=== PATIENT | male | born 1955 | race Caucasian/White ===

== ENCOUNTER 2016-12-08 19:46 | Observation (INO) | payer OTHER ==
[~2016-12-08] VITALS: Ht 175.3 cm; Wt 110.2 kg
[~2016-12-08 19:46] MED LIST: ACET-1175 PO; ASPI-435 PO; BRIM1GEL TD; CHOL100010 PO; DYZ PO; IBUP-1427 PO; LEVO75TA PO; METO50TA16 PO; OXYC1TAB3 PO; SIMV20TA2 PO
[2016-12-08] MEDS ORDERED: SODIUM CHLORIDE 0.9% 1000ML 1,000 ML IV STA (19:59)
[2016-12-08] MEDS ORDERED: ADENOSINE IV SOLN 3 MG/ML 2 ML VIAL ONE (19:59)
[2016-12-08] MEDS ORDERED: ADENOSINE IV SOLN 3 MG/ML 2 ML VIAL IV STA (20:01)
[2016-12-08 20:20] LABS: BASO % 0.2 %; BASO ABS # 0.02 K/uL (0-0.2); COMPLETE YES; EOS % 1.6 %; HEMATOCRIT 45.6 % (42-52); IG% 0.2 %; LYMPH % 29.1 %; LYMPH ABS # 2.87 K/uL (1.2-3.4); MEAN CELL VOLUME 88.7 fL (80-100); MEAN CORPUSCULAR HEMOGLOBIN 29.8 pg (25-34); MEAN CORPUSCULAR HGB CONC 33.6 g/dl (32-36); MEAN PLATELET VOLUME 12.8 fL (7.4-10.4); MONO % 4.9 %; PLATELET COUNT 152 K/uL (130-400); RED BLOOD COUNT 5.14 M/uL (4.7-6.1); WHITE BLOOD COUNT 9.87 K/uL (4.8-10.8)
[2016-12-08] MEDS ORDERED: TRIATAB3 PO (20:22)
[2016-12-08] MEDS ORDERED: CHOL1TAB53 PO (20:22)
--- NOTE | 2016-12-08 20:23 | DIAGNOSTIC IMAGING REPORT ---
CHEST ONE VIEW PORTABLE CLINICAL HISTORY: EVALUATE RESPIRATORY DISTRESS. DYSPNEA dyspnea COMPARISON STUDY: 05/26/2014 FINDINGS: Moderate cardiomegaly. Small parenchymal infiltrate left base. Calcified granuloma right upper lung. IMPRESSION: Moderate cardiac megaly. Small parenchymal infiltrate left base. Electronically signed by: Hudson Mejia M.D. 12/08/2016 8:22 PM Dictated Date/Time: 12/08/2016 8:22 PM
[2016-12-08 20:30] LABS: PARTIAL THROMBOPLASTIN RATIO 1.2; PROTHROMBIN TIME (PATIENT) 10.8 SECONDS (9.0-12.0)
[2016-12-08 20:41] LABS: ALT/SGPT 55 U/L (12-78); BLOOD UREA NITROGEN 16 mg/dl (7-18); BUN/CREATININE RATIO 12.2 (10-20); CALCIUM 8.9 mg/dl (8.5-10.1); CARBON DIOXIDE 33 mmol/L (21-32); CHLORIDE 101 mmol/L (98-107); GLUCOSE 176 mg/dl (70-99); MAGNESIUM 1.9 mg/dl (1.8-2.4); POTASSIUM 3.7 mmol/L (3.5-5.1); SODIUM 141 mmol/L (136-145)
[2016-12-08 20:49] LABS: ISTAT CREATININE 1.1 mg/dl (0.6-1.3); ISTAT IONIZED CALCIUM 1.12 mmol/l (1.12-1.32)
[2016-12-08 20:50] LABS: URINE APPEARANCE CLEAR (CLEAR); URINE BILIRUBIN NEG (NEG); URINE COLOR YELLOW; URINE NITRITE NEG (NEG); URINE SPECIFIC GRAVITY 1.006 (1.000-1.030); UROBILINOGEN NEG (NEG)
[2016-12-08 20:52] LABS: MANUAL MICROSCOPIC REQUIRED? NO; REVIEW REQ? NO
[2016-12-08 20:52] LABS: ALB/GLOB RATIO 0.8 (0.9-2); ALKALINE PHOSPHATASE 102 U/L (45-117); AST/SGOT 37 U/L (15-37)
--- NOTE | 2016-12-08 21:09 | DIAGNOSTIC IMAGING REPORT ---
Study: CT angiography of the chest INDICATION: Pain FINDINGS: Normal caliber thoracic aorta. No evidence for aneurysm or dissection. Pulmonary vasculature enhances appropriately. Lungs are considered clear. Calcified granuloma superior segment right upper lobe. IMPRESSION: Negative study of the thoracic aorta. Lungs are clear. Electronically signed by: Hudson Mejia M.D. 12/08/2016 9:08 PM Dictated Date/Time: 12/08/2016 9:06 PM
[2016-12-08] MEDS ORDERED: OPTIRAY 320 IV PRN (21:15)
[2016-12-08] MEDS ORDERED: ASPIRIN 324 MG CHEW PO STA (21:23)
[2016-12-08] MEDS ORDERED: METOPROLOL TARTRATE 50 MG TAB PO STA ×2 (21:28→22:48)
--- NOTE | 2016-12-08 21:51 | EMERGENCY ROOM VISIT NOTE ---
History Report prepared by Luis: Frida Noel Under the Supervision of: Dr. Mike Olmstead D.O. First contact with patient: 19:55 Chief Complaint: CHEST PAIN Stated Complaint: CHEST PAINS History of Present Illness The patient is a 61 year old male who presents to the Emergency Room with complaints of persistent tightness in his chest starting 1830 today. He denies any SOB or abdominal pain. He denies any recent sickness. He had SVT 6-7 years ago. He had a stress test at the time which was fine. He has been eating and drinking normally. He does not have any history of heart failure. There might be something wrong with one of his heart valves, but the family cannot recall the exact problem. He has been taking all his medications. Source of History: patient Onset: 1829 Position: chest Quality: other (tightness) Timing: other (persistent) Associated Symptoms: No SOB, No abdominal pain Review of Systems See HPI for pertinent positives & negatives. A total of 10 systems reviewed and were otherwise negative. Past Medical & Surgical Medical Problems: (1) Cardiac Dysrhythmias Nec (2) Cervicalgia (3) History of supraventricular tachycardia (4) Hyperlipidemia Nec/Nos (5) Hypertension Nos (6) Hypothyroidism Nos (7) Hypothyroidism Nos (8) Osteoarthros Nos-Pelvis Surgical Problems: (1) Status post left hip replacement Family History None provided Social History Smoking Status: Current Some Day Smoker Drug Use: none Marital Status: Housing Status: lives with significant other Occupation Status: disabled Current/Historical Medications Scheduled Acetaminophen (Tylenol), 650 MG PO PRN Aspirin (Aspirin 81), 81 MG PO DAILY Cholecalciferol (D 1000), 1,000 INTER.UNIT PO DAILY Ibuprofen Tab (Motrin), 600 MG PO TID Levothyroxine Sodium (Synthroid), 75 MCG PO DAILY Metoprolol Tartrate (Lopressor) (Lopressor), 50 MG PO BID Simvastatin (Zocor), 20 MG PO QPM Triamterene/Hctz (Triamterene/Hctz 37.5-25MG), 1 TAB PO DAILY Scheduled PRN Oxycodone Immediate Rel Tab (Roxicodone Ir), 1-2 TAB PO Q4H PRN for Severe Pain Allergies Coded Allergies: Penicillins (Verified Allergy, Unknown, HIVES, SOB, G I UPSET, 12/08/16) Physical Exam Vital Signs Date Time Temp Pulse Resp B/P Pulse Ox O2 Delivery O2 Flow Rate FiO2 12/08/16 21:31 95 13 99 12/08/16 21:30 162/104 12/08/16 21:20 147/75 12/08/16 21:16 123 96 12/08/16 21:15 183/137 12/08/16 21:05 158/85 12/08/16 20:46 98 26 97 12/08/16 20:45 137/83 12/08/16 20:31 98 12 98 12/08/16 20:30 144/101 12/08/16 20:27 110 18 171/106 98 Room Air 12/08/16 20:27 171/106 12/08/16 20:17 97 Room Air 12/08/16 20:16 101 15 96 12/08/16 20:15 100 12/08/16 20:13 100 19 137/79 96 Room Air 12/08/16 20:11 96 Room Air 12/08/16 20:11 97 Room Air 12/08/16 20:09 137/79 12/08/16 19:51 36.8 181 20 137/77 92 Room Air Physical Exam GENERAL: Patient is awake, alert, and anxious appearing. EYES: The conjunctivae are clear. The pupils are round and reactive. EARS, NOSE, MOUTH AND THROAT: The nose is without any evidence of any deformity. Mucous membranes are moist tongue is midline NECK: The neck is nontender and supple. RESPIRATORY: Normal respiratory effort is noted there is no evidence of wheezing rhonchi or rales CARDIOVASCULAR: Tachycardic rate and regular rhythm. No definite murmur noted to auscultation. GASTROINTESTINAL: The abdomen is soft. Bowel sounds are present in all quadrants. Abdomen is nontender MUSCULOSKELETAL/EXTREMITIES: There is no evidence of gross deformity full range of motion is noted in the hips and shoulders SKIN: There is no obvious evidence of any rash. There are no petechiae, pallor or cyanosis noted. Trace pedal edema bilaterally. NEUROLOGIC: Patient is awake alert and oriented x3. Medical Decision & Procedures ER Provider Diagnostic Interpretation: X-ray results as stated below per interpretation by me and the radiologist. Radiology results as stated below per my review and radiologist interpretation: CHEST ONE VIEW PORTABLE CLINICAL HISTORY: EVALUATE RESPIRATORY DISTRESS. DYSPNEA dyspnea COMPARISON STUDY: 05/26/2014 FINDINGS: Moderate cardiomegaly. Small parenchymal infiltrate left base. Calcified granuloma right upper lung. IMPRESSION: Moderate cardiac megaly. Small parenchymal infiltrate left base. Electronically signed by: Hudson Mejia M.D. 12/08/2016 8:22 PM Dictated Date/Time: 12/08/2016 8:22 PM Study: CT angiography of the chest INDICATION: Pain FINDINGS: Normal caliber thoracic aorta. No evidence for aneurysm or dissection. Pulmonary vasculature enhances appropriately. Lungs are considered clear. Calcified granuloma superior segment right upper lobe. IMPRESSION: Negative study of the thoracic aorta. Lungs are clear. Electronically signed by: Hudson Mejia M.D. 12/08/2016 9:08 PM Dictated Date/Time: 12/08/2016 9:06 PM Laboratory Results 12/08/16 20:00 Red Blood Count 5.14, Mean Corpuscular Volume 88.7, Mean Corpuscular Hemoglobin 29.8, Mean Corpuscular Hemoglobin Concent 33.6, Mean Platelet Volume 12.8, Neutrophils (%) (Auto) 64.0, Lymphocytes (%) (Auto) 29.1, Monocytes (%) (Auto) 4.9, Eosinophils (%) (Auto) 1.6, Basophils (%) (Auto) 0.2, Neutrophils # (Auto) 6.32, Lymphocytes # (Auto) 2.87, Monocytes # (Auto) 0.48, Eosinophils # (Auto) 0.16, Basophils # (Auto) 0.02 12/08/16 20:00 Test 12/08/16 20:00 12/08/16 20:25 12/08/16 20:31 White Blood Count 9.87 K/uL (4.8-10.8) Red Blood Count 5.14 M/uL (4.7-6.1) Hemoglobin 15.3 g/dL (14.0-18.0) Hematocrit 45.6 % (42-52) Mean Corpuscular Volume 88.7 fL (80-100) Mean Corpuscular Hemoglobin 29.8 pg (25-34) Mean Corpuscular Hemoglobin Concent 33.6 g/dl (32-36) Platelet Count 152 K/uL (130-400) Mean Platelet Volume 12.8 fL (7.4-10.4) Neutrophils (%) (Auto) 64.0 % Lymphocytes (%) (Auto) 29.1 % Monocytes (%) (Auto) 4.9 % Eosinophils (%) (Auto) 1.6 % Basophils (%) (Auto) 0.2 % Neutrophils # (Auto) 6.32 K/uL (1.4-6.5) Lymphocytes # (Auto) 2.87 K/uL (1.2-3.4) Monocytes # (Auto) 0.48 K/uL (0.11-0.59) Eosinophils # (Auto) 0.16 K/uL (0-0.5) Basophils # (Auto) 0.02 K/uL (0-0.2) RDW Standard Deviation 45.6 fL (36.4-46.3) RDW Coefficient of Variation 14.0 % (11.5-14.5) Immature Granulocyte % (Auto) 0.2 % Immature Granulocyte # (Auto) 0.02 K/uL (0.00-0.02) Prothrombin Time 10.8 SECONDS (9.0-12.0) Prothromb Time International Ratio 1.0 (0.9-1.1) Activated Partial Thromboplast Time 29.9 SECONDS (21.0-31.0) Partial Thromboplastin Ratio 1.2 Est Creatinine Clear Calc Drug Dose 73.4 ml/min Estimated GFR () 68.7 Estimated GFR (Non- 59.3 BUN/Creatinine Ratio 12.2 (10-20) Calcium Level 8.9 mg/dl (8.5-10.1) Magnesium Level 1.9 mg/dl (1.8-2.4) Total Bilirubin 0.5 mg/dl (0.2-1) Aspartate Amino Transf (AST/SGOT) 37 U/L (15-37) Alanine Aminotransferase (ALT/SGPT) 55 U/L (12-78) Alkaline Phosphatase 102 U/L (45-117) Troponin I < 0.015 ng/ml (0-0.045) Total Protein 8.6 gm/dl (6.4-8.2) Albumin 3.8 gm/dl (3.4-5.0) Globulin 4.8 gm/dl (2.5-4.0) Albumin/Globulin Ratio 0.8 (0.9-2) Thyroid Stimulating Hormone (TSH) 2.330 uIu/ml (0.300-4.500) Urine Color YELLOW Urine Appearance CLEAR (CLEAR) Urine pH 7.0 (4.5-7.5) Urine Specific [place] 1.006 (1.000-1.030) Urine Protein NEG (NEG) Urine Glucose (UA) NEG (NEG) Urine Ketones NEG (NEG) Urine Occult Blood NEG (NEG) Urine Nitrite NEG (NEG) Urine Bilirubin NEG (NEG) Urine Urobilinogen NEG (NEG) Urine Leukocyte Esterase NEG (NEG) Bedside Hemoglobin 16.0 g/dl (14.0-18.0) Bedside Hematocrit 47 % (42-52) Bedside Sodium 143 mEq/L (135-144) Bedside Potassium 3.4 mEq/L (3.3-5.0) Bedside Chloride 98 mEq/L (101-112) Bedside Total CO2 32 mEq/l (24-31) Anion Gap 18.0 mmol/L (16-25) Bedside Blood Urea Nitrogen 17 mg/dl (7-18) Bedside Creatinine 1.1 mg/dl (0.6-1.3) Bedside Glucose (other) 175 mg/dl (70-99) Bedside Ionized Calcium (Maria G) 1.12 mmol/l (1.12-1.32) Laboratory results per my review. Medications Administered Medications (Trade) Dose Ordered Sig/Deepak Route Start Time Stop Time Status Last Admin Dose Admin Sodium Chloride (Nss 1000ml) 1,000 ml @ 999 mls/hr Q1H1M STAT IV 12/08/16 19:59 12/08/16 20:59 DC 12/08/16 20:14 999 MLS/HR Adenosine (Adenosine IV) 6 mg NOW STAT IV 12/08/16 20:01 12/08/16 20:02 DC 12/08/16 20:01 6 MG Adenosine (Adenosine IV) 18 mg STK-MED ONCE .ROUTE 12/08/16 19:59 12/08/16 20:03 DC 12/08/16 20:14 12 MG Aspirin (Aspirin Chew) 324 mg NOW STAT PO 12/08/16 21:23 12/08/16 21:24 DC 12/08/16 21:43 324 MG Metoprolol Tartrate (Lopressor Tab) 50 mg NOW STAT PO 12/08/16 21:28 12/08/16 21:29 DC 12/08/16 21:43 50 MG ECG Indication: chest pain Rate (beats per minute): 162 Rhythm: other (narrow complex tachycardia) Findings: Q waves (Inferior), other (poor R-wave progression noted, no definite ectopy noted,) Comparison ECG Date: Change: changes new. Repeat EKG: Sinus tachycardia, rate 106, 1st degree AV block, poor R-wave progression, lateral ST depressions with T-wave inversion. New compared to . Repeat EKG: NSR 95, persistence of inferior ST and T-wave abnormalities. No change from the previous EKG. ED Course 1956: The patient was evaluated in room A4B. A complete history and physical examination were performed. 1958: Adenosine 18 mg IV, NSS 1000 ml @ 999 mls/hr IV. 2000: Adenosine 6 mg IV. 2122: Aspirin 324 mg PO. 2127: Lopressor Tab 50 mg PO. 2134: I discussed the patient's case with Dr. Ruffin, [facility] - hospitalist. The patient will be evaluated for further management. 2139: Upon reevaluation, the patient is resting comfortably. I discussed results and treatment plan with him. He verbalizes agreement and understanding. The patient will be evaluated for further management and care. Medical Decision Prior records/ancillary studies reviewed. Triage Nursing notes reviewed. Additional history obtained from family. The patient's history was concerning for palpitations. Differential diagnosis: Etiologies such as premature contractions, electrolyte abnormality, cardiac dysrhythmia, thyroid dysfunction, pulmonary embolism, infection, gastrointestinal, as well as others were entertained. The patient is a 61-year-old male who presented to the emergency department for an evaluation of chest pain and palpitations. The patient has a history of SVT. He states that he was treated with Adenocard previously for similar complaints. The patient was given a fluid bolus as well as Valsalva maneuvers to try to break the tachycardia. He did not have resolution of symptoms and was then treated with IV Adenocard in the emergency department. On subsequent reevaluation he was in a sinus tachycardia. His symptoms significantly improved. The patient was found have an EKG which did show change compared to previous EKG. I was very concerned this could represent an underlying cardiac ischemic episode however the patient did have a cardiac catheterization at our facility which did not show any occlusive coronary artery disease. I discussed the patient's laboratory and radiographic studies with him and his family members. The patient was treated with aspirin and beta blockade in the emergency department. I discussed his case with the on-call [facility]ist. They've agreed to evaluate the patient in the emergency department for further management and disposition. Consults Time Called: 2129 Consulting Physician: Dr. Ruffin [facility] Returned Call: [phone] I discussed the patient's case with him. The patient will be evaluated for further management. Impression Primary Impression: Chest pain Additional Impressions: SVT (supraventricular tachycardia) Abnormal EKG Critical Care I have personally spent greater than 45 minutes of critical care time in the direct management of this patient. This includes bedside care, interpretation of diagnostic studies, and testing, discussion with consultants, patient, and family members, and other required patient management activities. This 45 minutes is in excess of all separately billable procedures. Scribe Attestation The scribe's documentation has been prepared under my direction and personally reviewed by me in its entirety. I confirm that the note above accurately reflects all work, treatment, procedures, and medical decision making performed by me. Departure Information Dispostion Being Evaluated By Hospitalist Referrals Hudson Myers M.D. (PCP) Patient Instructions My [facility] Problem Qualifiers Primary Impression: Chest pain Chest pain type: unspecified Qualified Codes: R07.9 - Chest pain, unspecified
--- NOTE | 2016-12-08 22:42 | History and Physical ---
History & Physical Date & Time of Service: Dec 08, 2016 at ~ 22:00 . Chief Complaint: chest pain, palpitations . Primary Care Physician: Hudson Myers M.D. . History of Present Illness Source: patient, family, clinic records, hospital records 61 YO male followed by Dr. Myers for Family Medicine. Followed by Hudson Tidwell PA-C and Dr. Leigh for Cardiology. 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 Experienced chest pain and dyspnea on exertion in 2007. Cardiac cath performed at [facility] on 01/16/[address] Leigh showed minimal luminal irregularities RCA, bicuspid aortic valve, anomalous origin left subclavian artery, LVEF 50%, mild dilatation aortic root. About 2 weeks after cardiac cath in 2007 he had an episode of SVT. SVT has been controlled on metoprolol. This evening around 1900 he developed palpitations and chest pressure while playing cards. Chest pressure was midsternal and did not radiate. No associated dyspnea, nausea, vomiting, sweats, lightheadedness, syncope. Came to ED for evaluation. Noted to be tachycardic. EKG showed regular tachycardia at 160 / min with QRS duration of 100 msec. Received IV adenosine 6 mg followed by 12 mg with conversion to sinus rhythm. Pain-free at time of my assessment. Drinks about 5 cups of coffee a day as well as caffeinated soft drinks. No recent use of decongestants. Does not consume alcohol. No illicit drugs. History of hypothyroidism treated with levothyroxine. TSH was 1.56 on 08/31/16. . 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 details Status: Chronic (3) Status post colonoscopy Permanent Comment: adenomatous polyps Status: Chronic (4) Status post left hip replacement Status: Chronic (5) Status post lumbar surgery Permanent Comment: 2014 for lumbar spinal stenosis Status: Chronic . Family History FATHER Coronary artery disease MOTHER Diabetes mellitus Heart disease Social History Smoking Status: Light Tobacco Smoker (occasional cigar) Alcohol Use: none Drug Use: none Marital Status: Occupational Status: disabled Immunizations History of Influenza Vaccine: Yes History of Tetanus Vaccine?: Yes History of Pneumococcal: Unknown History of Hepatitis B Vaccine: Yes Multi-Drug Resistant Organisms History of MDRO: No Allergies Coded Allergies: Penicillins (Verified Allergy, Unknown, HIVES, SOB, G I UPSET, 12/08/16) Home Medications Scheduled Acetaminophen (Tylenol), 650 MG PO PRN Aspirin (Aspirin 81), 81 MG PO DAILY Cholecalciferol (D 1000), 1,000 INTER.UNIT PO DAILY Levothyroxine Sodium (Synthroid), 75 MCG PO DAILY Metoprolol Tartrate (Lopressor) (Lopressor), 50 MG PO BID Simvastatin (Zocor), 20 MG PO QPM Triamterene/Hctz (Triamterene/Hctz 37.5-25MG), 1 TAB PO DAILY Scheduled PRN Ibuprofen Tab (Motrin), 600 MG PO TID PRN for Pain Oxycodone Immediate Rel Tab (Roxicodone Ir), 1-2 TAB PO Q4H PRN for Severe Pain Review of Systems Constitutional: No fever, No weight loss Eyes: No diplopia, No worsening of vision ENT: + hearing loss, + nasal symptoms, No sore throat Respiratory: No cough, No shortness of breath Cardiovascular: + problem reported (as noted above in HPI) Abdomen: No GI bleeding, No diarrhea, No nausea, No pain, No vomiting Musculoskeletal: + joint pain (back pain) Genitourinary - Male: No dysuria, No hematuria Endocrine: No excessive thirst, No excessive urination Hematologic / Lymphatic: No abnormal bleeding/bruising, No swollen lymph nodes Integumentary: No new/changing skin lesions, No rash Physical Exam Vital Signs Date Time Temp Pulse Resp B/P Pulse Ox O2 Delivery O2 Flow Rate FiO2 12/08/16 21:31 95 13 99 12/08/16 21:30 162/104 12/08/16 21:20 147/75 12/08/16 21:16 123 96 12/08/16 21:15 183/137 12/08/16 21:05 158/85 12/08/16 20:46 98 26 97 12/08/16 20:45 137/83 12/08/16 20:31 98 12 98 12/08/16 20:30 144/101 12/08/16 20:27 110 18 171/106 98 Room Air 12/08/16 20:27 171/106 12/08/16 20:17 97 Room Air 12/08/16 20:16 101 15 96 12/08/16 20:15 100 12/08/16 20:13 100 19 137/79 96 Room Air 12/08/16 20:11 96 Room Air 12/08/16 20:11 97 Room Air 12/08/16 20:09 137/79 12/08/16 19:51 36.8 181 20 137/77 92 Room Air General Appearance: WD/WN, no apparent distress Head: normocephalic, atraumatic Eyes: normal inspection, PERRL, EOMI, sclerae normal ENT: normal ENT inspection, pharynx normal, + pertinent finding (hearing loss) Neck: supple, no adenopathy, thyroid normal, no JVD, trachea midline Respiratory/Chest: lungs clear, no respiratory distress, no accessory muscle use Cardiovascular: regular rate, rhythm, no edema, no gallop, no JVD, normal peripheral pulses, + systolic murmur (III/ systolic murmur heard throughout precordium) Abdomen/GI: normal bowel sounds, non tender, soft, no organomegaly, no pulsatile mass Extremities/Musculoskelatal: normal inspection, no calf tenderness, no pedal edema Neurologic/Psych: alert, oriented x 3, + pertinent finding (PERRL, EOMI, mild dysarthria (chronic)) Skin: normal color, warm/dry, + rash (seborrheic dermatitis) Lymphatic: no adenopathy Diagnostics Laboratory Results Results Past 24 Hours Test 12/08/16 20:00 12/08/16 20:25 12/08/16 20:31 Range/Units White Blood Count 9.87 4.8-10.8 K/uL Red Blood Count 5.14 4.7-6.1 M/uL Hemoglobin 15.3 14.0-18.0 g/dL Hematocrit 45.6 42-52 % Mean Corpuscular Volume 88.7 80-100 fL Mean Corpuscular Hemoglobin 29.8 25-34 pg Mean Corpuscular Hemoglobin Concent 33.6 32-36 g/dl Platelet Count 152 130-400 K/uL Mean Platelet Volume 12.8 7.4-10.4 fL Neutrophils (%) (Auto) 64.0 % Lymphocytes (%) (Auto) 29.1 % Monocytes (%) (Auto) 4.9 % Eosinophils (%) (Auto) 1.6 % Basophils (%) (Auto) 0.2 % Neutrophils # (Auto) 6.32 1.4-6.5 K/uL Lymphocytes # (Auto) 2.87 1.2-3.4 K/uL Monocytes # (Auto) 0.48 0.11-0.59 K/uL Eosinophils # (Auto) 0.16 0-0.5 K/uL Basophils # (Auto) 0.02 0-0.2 K/uL RDW Standard Deviation 45.6 36.4-46.3 fL RDW Coefficient of Variation 14.0 11.5-14.5 % Immature Granulocyte % (Auto) 0.2 % Immature Granulocyte # (Auto) 0.02 0.00-0.02 K/uL Prothrombin Time 10.8 9.0-12.0 SECONDS Prothromb Time International Ratio 1.0 0.9-1.1 Activated Partial Thromboplast Time 29.9 21.0-31.0 SECONDS Partial Thromboplastin Ratio 1.2 Sodium Level 141 136-145 mmol/L Potassium Level 3.7 3.5-5.1 mmol/L Chloride Level 101 98-107 mmol/L Carbon Dioxide Level 33 21-32 mmol/L Anion Gap 7.0 18.0 16-25 mmol/L Blood Urea Nitrogen 16 7-18 mg/dl Creatinine 1.30 0.60-1.40 mg/dl Est Creatinine Clear Calc Drug Dose 73.4 ml/min Estimated GFR () 68.7 Estimated GFR (Non- 59.3 BUN/Creatinine Ratio 12.2 10-20 Random Glucose 176 70-99 mg/dl Calcium Level 8.9 8.5-10.1 mg/dl Magnesium Level 1.9 1.8-2.4 mg/dl Total Bilirubin 0.5 0.2-1 mg/dl Aspartate Amino Transf (AST/SGOT) 37 15-37 U/L Alanine Aminotransferase (ALT/SGPT) 55 12-78 U/L Alkaline Phosphatase 102 45-117 U/L Troponin I < 0.015 0-0.045 ng/ml Total Protein 8.6 6.4-8.2 gm/dl Albumin 3.8 3.4-5.0 gm/dl Globulin 4.8 2.5-4.0 gm/dl Albumin/Globulin Ratio 0.8 0.9-2 Thyroid Stimulating Hormone (TSH) 2.330 0.300-4.500 uIu/ml Urine Color YELLOW Urine Appearance CLEAR CLEAR Urine pH 7.0 4.5-7.5 Urine Specific [place] 1.006 1.000-1.030 Urine Protein NEG NEG Urine Glucose (UA) NEG NEG Urine Ketones NEG NEG Urine Occult Blood NEG NEG Urine Nitrite NEG NEG Urine Bilirubin NEG NEG Urine Urobilinogen NEG NEG Urine Leukocyte Esterase NEG NEG Bedside Hemoglobin 16.0 14.0-18.0 g/dl Bedside Hematocrit 47 42-52 % Bedside Sodium 143 135-144 mEq/L Bedside Potassium 3.4 3.3-5.0 mEq/L Bedside Chloride 98 101-112 mEq/L Bedside Total CO2 32 24-31 mEq/l Bedside Blood Urea Nitrogen 17 7-18 mg/dl Bedside Creatinine 1.1 0.6-1.3 mg/dl Bedside Glucose (other) 175 70-99 mg/dl Bedside Ionized Calcium (Maria G) 1.12 1.12-1.32 mmol/l Diagnostic Radiology CHEST ONE VIEW PORTABLE FINDINGS: Moderate cardiomegaly. Small parenchymal infiltrate left base. Calcified granuloma right upper lung. IMPRESSION: Moderate cardiac megaly. Small parenchymal infiltrate left base. Electronically signed by: Hudson Mejia M.D. 12/08/2016 8:22 PM Study: CT angiography of the chest FINDINGS: Normal caliber thoracic aorta. No evidence for aneurysm or dissection. Pulmonary vasculature enhances appropriately. Lungs are considered clear. Calcified granuloma superior segment right upper lobe. IMPRESSION: Negative study of the thoracic aorta. Lungs are clear. Electronically signed by: Hudson Mejia M.D. 12/08/2016 9:08 PM . EKG EKG performed at 19:53 reviewed and demonstrated tachycardia at 160 / minute, QRS duration 100 msec, electrical alterans, poor R-wave progression, lateral ST depression and T-wave inversion. EKG performed at 20:[address] at 106 / minute, poor R- wave progression, lateral ST depression with T-wave inversion. EKG performed at 21:29 reviewed and demonstrated NSR at 95 / minute, poor R- wave progression, isolated ST elevation III, less lateral ST depression, inverted and biphasic T-waves lateral leads Tracings compared to EKG performed at [facility] 09/24/08. ST and T-wave changes new compared to that study. . Impression Assessment and Plan SUPRAVENTRICULAR TACHYCARDIA Remote history of SVT managed with metoprolol tartrate 50 mg BID. Recurrent episode of SVT this evening. Converted to sinus rhythm after receiving adenosine. Lytes OK. Recent TSH OK. Increase metoprolol tartrate to 75 mg BID. Avoidance of caffeine and decongestants advised. Consult Cardiology. CHEST PAIN Most likely due to SVT. EKG showed nonspecific ST and T-wave changes. Cath 2007 showed minimal disease RCA. Check serial cardiac markers. Further evaluation per Cardiology. ELECTRICAL ALTERNANS Probably due to SVT, resolved after conversion to sinus rhythm. ? PULMONARY INFILTRATE Possible infiltrate noted on port chest x-ray, but not on CT of chest. No fever or cough. Follow. BICUSPID AORTIC VALVE Noted on cardiac cath 2007. Echo 05/26/14 in clinic showed bicuspid aortic valve with mild stenosis, moderate concentric LVH, LVEF 50-54%. Follow-up per Cardiology. HISTORY DILATED AORTIC ROOT CTA chest did not show any dissection. Dimensions of aorta felt to be normal. Follow-up per Cariology. HYPERTENSION Continue metoprolol and triamterene / HCTZ. DYSLIPIDEMIA Check lipids. Continue simvastatin. HYPOTHYROIDISM Recent TSH normal. Continue levothyroxine. VTE PROPHYLAXIS Low risk. SQ enoxaparin. Ambulate. RESUSCITATION STATUS Discussed with patient and his . He does not have a living will. He would like resuscitation attempted in the event of a cardiopulmonary arrest if there is a reasonable chance of a meaningful recovery, but does not want prolonged extraordinary measures if prognosis is poor. Therefore, code status = "Level 1" (full resuscitation). DISPOSITION Observation status on Telemetry Unit. Expected discharge to home. Family Medicine follow-up with Dr. Myers. Cardiology follow-up with ANGELIA Tidwell and Dr. Leigh. . VTE Prophylaxis VTE Risk Assessment Done? Y/N: Yes Risk Level: Low Given or contraindicated: Enoxaparin (Lovenox)SQ
[2016-12-08] MEDS ORDERED: ACETAMINOPHEN 325 MG TAB PO PRN (22:45)
[2016-12-08] MEDS ORDERED: OXYCODONE HCL IR 5 MG TAB (IMMEDIATE RELEASE) PO PRN (22:45)
[2016-12-08] MEDS ORDERED: IBUPROFEN 600 MG TAB PO PRN (22:45)
[2016-12-08 23:00] VITALS: BP 137/74; PULSE 84; TEMP 37.2; O2SAT 96; Ht 175.3 cm; Wt 110.2 kg
[2016-12-08] MEDS ORDERED: ENOXAPARIN 40 MG/0.4 ML SYR SC SCH (23:00)
[2016-12-08] MEDS ORDERED: IV FLUIDS COMPLETED PRN (23:15)
[2016-12-09 05:22] VITALS: BP 136/79; PULSE 72; TEMP 36.9; O2SAT 96
[2016-12-09] MEDS ORDERED: LEVOTHYROXINE 75 MCG TAB PO SCH (06:00)
[2016-12-09 07:02] VITALS: BP 117/70; PULSE 68; TEMP 36.9; O2SAT 95
[2016-12-09 08:06] LABS: CHOLESTEROL/HDL RATIO 4.7
[2016-12-09] MEDS ORDERED: CHOLECALCIFEROL 1000 INTER.UNIT TAB PO SCH (09:00)
[2016-12-09] MEDS ORDERED: TRIAMTERENE/HCTZ 37.5/25MG TAB PO SCH (09:00)
[2016-12-09] MEDS ORDERED: ASPIRIN 81 MG ECTAB PO SCH (09:00)
[2016-12-09] MEDS ORDERED: METOPROLOL TARTRATE 25 MG TAB PO SCH (09:00)
[2016-12-09 10:11] LABS: CKMB/CK RATIO 1.6 (0-3.0)
[2016-12-09] MEDS ORDERED: PERFLUTREN LIPID MICROSPHERE (DEFINITY) IV ONE (11:01)
--- NOTE | 2016-12-09 11:04 | CARDIOLOGY CONSULTATION ---
DATE OF CONSULTATION: 12/09/2016 DATE OF CONSULTATION: 12/09/2016. HISTORY OF PRESENT ILLNESS: José Marquez is a 61-year-old male seen in cardiology consultation per the request of Dr. Hima Ruffin for the evaluation of chest discomfort, findings of SVT. The patient's primary care provider is Dr. Hudson Myers. The patient had followed with Dr. Leigh of our practice as well as [facility] with last outpatient visit having been in 2013. At that time, he was seen in preoperative evaluation prior to spine surgery. He was having difficulty with leg and spine pain. He was only able to walk short distances without having to rest due to his back pain at that point. He was unable to exercise at that time and underwent a resting echocardiogram which had been reviewed by the undersigned revealing a low normal LVEF at 50-54%. The aortic valve was noted to be congenitally bicuspid with mild aortic valve stenosis and no significant aortic valve regurgitation noted on that study. The aortic root and proximal ascending aorta measurements were normal in diameter at that time. There was a small sized inferior wall motion abnormality noted on the resting echocardiogram. The echocardiogram was technically limited to some degree per the report. He went on to have a pharmacologic nuclear stress test on 05/26/2014 at [facility]. There was no evidence of resting or inducible ischemia. The ejection fraction was calculated to be 70%. The report describes an intermittent incomplete left bundle branch block with resultant repolarization abnormalities during pharmacologic stress and the EKG was back to its previous baseline in the post-stress recovery interval. The patient went on to have spine surgery and apparently did well from a cardiac perspective but has had residual back and left lower leg pain in the meantime and has also had difficulty with tremor limiting his gait. Last evening he noted that he was in his normal state of health. He was playing a friendly game of cards and at 7:00 p.m. he noted abrupt onset of an uneasiness in the middle of his chest. He states that it felt like "somebody punched him." The discomfort persisted and was similar to a past episode of documented SVT in character that he had back in 2008. His spouse therefore drove him to the Emergency Department where initial EKG performed on arrival on 12/08/2016 at 1953 revealed evidence of a tachycardia at 162 beats per minute with morphology consistent with SVT with intraventricular conduction delay. The patient received a single dose of IV adenosine of 6 mg and then received a second dose of 12 mg with subsequent conversion to sinus rhythm. The patient notes that ever since his tachycardia terminated with adenosine he has felt perfectly normal back to himself with no additional symptoms. He rested well overnight last night. He has been on metoprolol since he had a past episode of similar tachycardia on 09/24/2008. At that time he had presented with a heart rate of 160 and received 6 mg of adenosine with termination of the arrhythmia with adenosine. He has been on metoprolol in the interim time and has had no documented recurrence. He notes that he drinks about 5 cups of coffee a day as well as caffeinated soft drinks. This has not changed. He does not consume alcohol and he does not use any recent decongestant or [id number] cold remedies. At present during my interview with him he states that he feels well. He notes that his physical exertion at baseline is limited by his chronic back and leg weakness and gait problems. PAST MEDICAL HISTORY: 1. History of bicuspid aortic valve, mild aortic stenosis by last echocardiogram 06/06/2014. 2. 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 3. Chart history of dilated aortic root. However, the aortic root measurement was noted to be normal at 3.8 cm on echocardiogram in 2013. 4. Dyslipidemia. 5. History of supraventricular tachycardia documented in 2008. 6. Hypertension. 7. Hypothyroidism. 8. Osteoarthritis. 9. Cervicalgia. PAST SURGICAL HISTORY: 1. History of apparent congenital heart surgery performed in the 1950s. I reviewed his outpatient cardiology notes and the details of the surgery are not known. 2. History of cardiac catheterization performed in the setting of chest discomfort at [facility] by Dr. Leihg on 01/16/2008. The report describes no obstructive coronary artery disease. Mild fusiform dilatation of the ascending aortic. Low normal LVEF at 50%. 3. History of colonoscopy. 4. History of left hip replacement. 5. History of lumbar spine surgery for spinal stenosis in 2013. FAMILY HISTORY: His father had a history of coronary artery disease and past myocardial infarction and apparently of what is felt to be a myocardial infarction with resultant sudden at the age of 86. SOCIAL HISTORY: The patient told me he was a nonsmoker, however he told the admitting physician that he smokes an occasional cigar. He denies alcohol use. Denies drug use. 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 He is . His spouse, Nandini, is at the bedside with him. COMPREHENSIVE REVIEW OF SYSTEMS: A 10-point review of systems is reviewed and is negative with the exception of that above. ALLERGIES: PENICILLINS, with hives and GI upset. HOME MEDICATIONS: 1. Acetaminophen 650 mg by mouth p.r.n. pain. 2. Aspirin 81 mg by mouth daily 3. Cholecalciferol. 4. Vitamin D 1000 international units daily. 5. Levothyroxine 75 mcg daily. 6. Metoprolol tartrate 50 mg by mouth 2 times per day. 7. Simvastatin 20 mg by mouth at bedtime. 8. Triamterene/hydrochlorothiazide 1 tablet by mouth daily. 9. He also takes ibuprofen 600 mg t.i.d. as needed for pain. 10. Oxycodone immediate release 1-2 tabs every 4 hours for severe pain. PHYSICAL EXAMINATION: VITAL SIGNS: Temperature 36.9, heart rate 68, blood pressure 117/70, pulse oximetry 95% on room air, respiratory rate 20. GENERAL APPEARANCE: Awake and oriented x3 in no acute distress. HEAD, EYES, EARS, NOSE, AND THROAT: Extraocular muscles were intact. Pupils equal and reactive to light. NECK: No bruits or cervical lymphadenopathy. CARDIOVASCULAR EXAMINATION: Regular rate. Subtle 1/6 systolic murmur. ABDOMEN: Positive bowel sounds, soft, tender. EXTREMITIES: No edema. NEUROLOGIC: Moves all 4 extremities on command. DIAGNOSTIC DATA: Presenting EKG with findings of SVT and intraventricular conduction delay as noted 12/08/2016 at 1953 hours. A repeat at 2129 hours revealed sinus rhythm with first degree AV block, IVCD, and possible age undetermined anterior septal infarction pattern with poor R-wave progression in leads V1-V4 and mild diffuse nonspecific repolarization abnormalities. A new EKG performed this morning on 12/09/2016 at 6:57 a.m. reveals sinus rhythm at 73 beats per minute with first degree AV block, possible age indeterminate anterior infarction pattern with poor R-wave progression in leads V1-V5. No significant ST changes other than those expected with his intraventricular conduction delay, incomplete left bundle branch block morphology. LABORATORY STUDIES: WBC 9.8, hemoglobin 16, platelet count 152. Sodium 143, potassium 3.4. Troponin less than 0.015 and 0.047 this morning at 6:15. He has an additional troponin level that is to be drawn at 12:[address] of the chest revealed no evidence of thoracic aortic dissection. Review of the images independently revealed anomalous right subclavian artery origin with course posterior to the esophagus. FINAL IMPRESSION: 61-year-old male 1. Chest discomfort in the setting of tachycardia terminated with adenosine consistent with paroxysmal supraventricular tachycardia. 2. Abnormal EKG with new intraventricular conduction delay. His previous baseline EKG from 06/06/2014 reveals incomplete right bundle branch block, current tracing is suggestive of incomplete left bundle branch block morphology. 3. History of bicuspid aortic valve with mild aortic valve stenosis in 2013. 4. 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 DISCUSSION AND PLAN: The patient describes the symptoms are reminiscent to his SVT episode in 2008. He has had no recurrence on beta keiry in the interim time and had no recurrence overnight last night. His TSH was within normal limits. His initial troponin was negative and his second troponin is just mildly elevated with another reading to be drawn in approximately 2 hours. Certainly, his elevated troponin may be simply due to elevated heart rate. He is of course at risk for coronary artery disease. In a remote cardiac catheterization in 2007, he had no significant CAD. He had a negative nuclear stress test in 2013. At the present time, I agree with increasing his home dose of metoprolol tartrate from 50 mg b.i.d. to 75 mg b.i.d. which has already been performed by the admitting physician. Continue his aspirin and continue simvastatin. I have requested a resting echocardiogram on him and if his wall motion is stable with chronic low normal ejection fraction would consider discharging him with plans for outpatient pharmacologic nuclear stress test and followup with me or Mr. Tidwell. It is noted that if he requires cardiac catheterization if perhaps it would be best performed from the right groin as he has an anomalous right subclavian artery origin and if a provider decides to proceed with cardiac catheterization in the future, I would recommend that the CT images of his aorta from this hospital stay are reviewed in advance to familiarize themselves with his anatomy. The echocardiogram will be helpful in assessing if his aortic valve stenosis has progressed. Even if he has moderate aortic valve stenosis, in the setting of an elevated heart rate, this may explain the mild troponin elevation. Further recommendations will be forthcoming after his echocardiogram and next troponin level are available. KANIKA
[2016-12-09 12:09] VITALS: BP 128/80; PULSE 66; TEMP 36.8; O2SAT 95
[2016-12-09 13:14] LABS: CKMB/CK RATIO 1.3 (0-3.0)
--- NOTE | 2016-12-09 13:50 | ECHOCARDIOGRAM REPORT ---
*NOTICE TO RECEIVING [employer] [facility] This information is strictly Confidential and protected under [place] law. [place] law prohibits you from making any further disclosure of this information unless further disclosure is expressly permitted by the written consent of the person to whom it pertains or is authorized by law. A general authorization for the release of medical or other information is not sufficient for this purpose. Hospital accepts no responsibility if the information is made available to any other person, INCLUDING THE PATIENT. Interpretation Summary * Name: BRYON RAMSEY Study Date: 12/09/2016 10:37 AM BP: 117/70 mmHg * Patient Location: C.2T\S\S238\S\2 HR: 68 * : 1955 (M/d/yyyy) Gender: Male Height: 69 in * Age: 61 yrs Ethnicity: [place] Weight: 242 lb * Ordering Physician: Jose M Esposito * Referring Physician: Self, Referred * Performed By: Olvin Lutz RDCS * * Reason For Study: Chest pain * BSA: 2.2 m2 * The study was technically difficult. * -- Conclusions -- * The study was technically difficult and limited as a reult due to patient characteristics / poor acoustic windows but adequate for the referral indication. * There is moderate concentric left ventricular hypertrophy. * The left ventricular wall motion is normal. * The LV Ejection Fraction = 55-60%. * The aortic valve is severely calcified. * The number of aortic valve cusps cannot be determined. * Moderate aortic regurgitation. * Moderate to borderline severe aortic stenosis is present. * Grade I diastolic dysfunction, (abnormal relaxation pattern). Procedure Details * A complete two-dimensional transthoracic echocardiogram was performed (2D, M-mode, Doppler and color flow Doppler). * The study was technically difficult. * The study was technically limited. * There were technical limitations due to patient's body habitus * The study was technically difficult, but visualization was adequate with the administration of Definity ultrasound contrast. * A contrast injection of Definity was performed to improve assessment of LV function. * Contrast was injected into an intravenous site in the left arm. * One vial of Definity ultrasound contrast was diluted in normal saline to a total volume of 10 ml. A total of '5' ml of solution was administered during imaging. * Lot # [id number] of Definity utilized for procedure. * Expiration date 1APR18. * The attending nurse who injected the contrast agent was KAREEM Christina. Left Ventricle * The left ventricle is normal in size. * There is moderate concentric left ventricular hypertrophy. * Left ventricular systolic function is normal. * Ejection Fraction = 55-60%. * The left ventricular wall motion is normal. Right Ventricle * The right ventricle is normal in size and function. Atria * The left atrial size is normal. * Right atrial size is normal. * No ASD detected; PFO is not assessed. Mitral Valve * The mitral valve is normal. * There is no mitral valve stenosis. * Significant mitral regurgitation is absent. Tricuspid Valve * The tricuspid valve is normal. * There is no tricuspid stenosis. * Significant tricuspid regurgitation is absent. * Doppler findings do not suggest pulmonary hypertension. Aortic Valve * The aortic valve is severely calcified. The number of aortic valve cusps cannot be determined. * Moderate to borderline severe aortic stenosis is present. * Moderate aortic regurgitation. Pulmonic Valve * The pulmonic valve is not well visualized. Great Vessels * The aortic root is normal size. Pericardium/Pleural * There is no pericardial effusion. Great Vessels * Normal inferior vena cava size and collapsability with sniff indicates a normal right atrial pressure of 3 mmHg Left Ventricular Diastolic Function * Grade I diastolic dysfunction, (abnormal relaxation pattern). MMode 2D Measurements and Calculations IVSd 1.5 cm IVSs 1.9 cm LVIDd 5.4 cm LVIDs 3.7 cm LVPWd 1.3 cm LVPWs 1.7 cm IVS/LVPW 1.1 FS 31.2 % EDV(Teich) 143.3 ml ESV(Teich) 59.5 ml EF(Teich) 58.5 % EDV(cubed) 160.4 ml ESV(cubed) 52.2 ml EF(cubed) 67.5 % % IVS thick 29.8 % % LVPW thick 31.4 % LV mass(C)d 326.2 grams LV mass(C)dI 145.6 grams/m\S\2 LV mass(C)s 287.7 grams LV mass(C)sI 128.4 grams/m\S\2 SV(Teich) 83.8 ml SI(Teich) 37.4 ml/m\S\2 SV(cubed) 108.2 ml SI(cubed) 48.3 ml/m\S\2 EPSS 0.94 cm Ao root diam 3.8 cm Ao root area 11.4 cm\S\2 ACS 0.72 cm asc Aorta Diam 3.4 cm LVOT diam 2.0 cm LVOT area 3.1 cm\S\2 LVAd ap4 25.3 cm\S\2 LVLd ap4 6.2 cm EDV(MOD-sp4) 83.0 ml LVAs ap4 12.9 cm\S\2 LVLs ap4 5.4 cm ESV(MOD-sp4) 26.0 ml EF(MOD-sp4) 68.7 % LVAd ap2 19.1 cm\S\2 LVLd ap2 6.5 cm EDV(MOD-sp2) 48.0 ml LVAs ap2 9.0 cm\S\2 LVLs ap2 5.0 cm ESV(MOD-sp2) 14.0 ml EF(MOD-sp2) 70.8 % SV(MOD-sp4) 57.0 ml SI(MOD-sp4) 25.4 ml/m\S\2 SV(MOD-sp2) 34.0 ml SI(MOD-sp2) 15.2 ml/m\S\2 Doppler Measurements and Calculations MV E max christiana 69.1 cm/sec MV A max christiana 86.4 cm/sec MV E/A 0.80 MV dec time 0.20 sec Ao V2 max 383.3 cm/sec Ao max PG 58.9 mmHg Ao max PG (full) 57.0 mmHg Ao V2 mean 271.2 cm/sec Ao mean PG 33.6 mmHg Ao mean PG (full) 32.5 mmHg Ao V2 VTI 90.8 cm KARISHMA(I,A) 0.58 cm\S\2 KARISHMA(I,D) 0.58 cm\S\2 KARISHMA(V,A) 0.57 cm\S\2 KARISHMA(V,D) 0.57 cm\S\2 AI max christiana 271.5 cm/sec AI max PG 29.5 mmHg AI dec slope 49.7 cm/sec\S\2 AI P1/2t 1600.7 msec LV V1 max PG 1.9 mmHg LV V1 mean PG 1.1 mmHg LV V1 max 69.3 cm/sec LV V1 mean 48.2 cm/sec LV V1 VTI 16.8 cm SV(Ao) 1033.3 ml SI(Ao) 461.3 ml/m\S\2 SV(LVOT) 52.7 ml SI(LVOT) 23.5 ml/m\S\2 PA V2 max 100.8 cm/sec PA max PG 4.1 mmHg TR max christiana 251.0 cm/sec
--- NOTE | 2016-12-09 14:45 | Cardiology Progress Note ---
Cardiology Progress Note Date of Service Dec 09, 2016. Cardiology Progress Note Cardiology follow-up note 12/09/16 2:34 PM Chief complaint: Follow-up chest pressure, SVT, bicuspid aortic valve Subjective: The patient was reassessed having had echocardiogram and a third troponin level in the interim. He feels well. He was resting comfortably when I arrived to the bedside. He denies any chest discomfort or shortness of breath. Diagnostic data: Transthoracic echocardiogram performed today 12/09/16 and reviewed independently by the undersigned: * -- Conclusions -- * The study was technically difficult and limited as a reult due to patient characteristics / poor acoustic windows but adequate for the referral indication. * There is moderate concentric left ventricular hypertrophy. * The left ventricular wall motion is normal. * The LV Ejection Fraction = 55-60%. * The aortic valve is severely calcified. * The number of aortic valve cusps cannot be determined. * Moderate aortic regurgitation. * Moderate to borderline severe aortic stenosis is present. * Grade I diastolic dysfunction, (abnormal relaxation pattern).\ Past 24 Hours Test 12/08/16 20:00 12/09/16 06:15 12/09/16 09:10 12/09/16 12:30 Range/Units Prothromb Time International Ratio 1.0 0.9-1.1 Prothrombin Time 10.8 9.0-12.0 SECONDS Troponin I < 0.015 0.047 *H 0.027 0-0.045 ng/ml Creatine Kinase MB 1.6 1.3 0.5-3.6 ng/ml Creatine Kinase MB Ratio 1.6 1.3 0-3.0 Total Creatine Kinase 97 100 39-308 U/L Impression: Compared to his prior transthoracic echocardiogram which I had personally interpreted at in 2013, there has been a progression of his underlying aortic valve stenosis. The echocardiogram images are technically limited. The aortic valve is calcified, he has a clinical history of bicuspid aortic valve, but the number of cusps cannot be determined on the current images. The valve however is severely calcified with noted decreased systolic excursion noted on limited 2-D evaluation. The Doppler evaluation is somewhat technically limited, but the peak velocity is certainly increased compared 2014 with the maximum continuous wave velocity measures 3.8 m/s. Findings are consistent with moderate, to borderline severe aortic stenosis. I had an additional long conversation with the patient and his spouse. With the exception of the chest pressure that he had felt last night that was associated with the SVT episode, he denies any exertional chest symptoms. Denies other chest discomfort denies shortness of breath. He notes that he only has 3 stairs however in his home, and he does not walk much due to his underlying back pain. Recommendations: At present, patient is stable from a cardiac perspective for discharge on increased dose of metoprolol tartrate 75 mg twice a day increased compared to his previous long standing dose of 50 mg twice a day. Patient was counseled that he will require outpatient follow-up with me within one month. Future outpatient considerations include: 1. Continued conservative surveillance, with plans for repeat transthoracic echocardiogram as an outpatient with attention to be paid to seeing if we can get better aortic valve measurements on an outpatient study. 2. After outpatient follow-up, transesophageal echocardiogram could be considered which would allow better 2-D visualization to perhaps more accurately determine the severity of aortic stenosis. 3. Proceed with left to right cardiac catheterization with hemodynamic assessment for aortic valve stenosis, and coronary angiography to make sure there is no occult CAD present. Challenging clinical decision however is that even if he is found to have severe aortic stenosis, he notes no significant cardiac symptoms exception of his recent tachycardia episode, however his physical exertion is severely limited due to his underlying back pain. Aortic valve replacement would be indicated for severe symptomatic aortic stenosis, but if we wait until onset of symptoms, his overall health may deteriorate to a point that surgical intervention for his aortic valve would not be feasible. At the present time, the patient is certainly clinically stable, and as long as he is agreeable to close outpatient follow-up this can be addressed over time as an outpatient. 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 The patient notes he has no trouble swallowing as long as he cuts his food into small pieces. He has never needed an EGD to evacuate food. The patient states that he has trouble swallowing large pieces of food such as large pieces of meat, and this may be related to his subclavian artery course. Looking at his esophagus on the CT images, I do not anticipate a problem with passing the transesophageal echocardiogram probe, however if any resistance met with future attempts at TWIN or endoscopy, would keep this anatomical detail in mind and would abort the study if resistance is found in the esophagus. Kate Esposito, DO
[2016-12-09] MEDS ORDERED: LPR25 PO (14:58)
[2016-12-09 15:10] VITALS: BP 128/80; PULSE 66; TEMP 36.8; O2SAT 95
--- NOTE | 2016-12-09 15:12 | Discharge Instructions ---
Discharge Instructions Date of Service Dec 09, 2016. Admission Reason for Admission: Svt (Supraventricular Tachycardia) Discharge Discharge Diagnosis / Problem: SVT-resolved Discharge Goals Goal(s): Prevent Disease Progression Activity Recommendations Activity Limitations: resume your previous activity . Instructions / Follow-Up Instructions / Follow-Up Please take all medications as instructed--note new increased dose of Metoprolol. New medications were electronically sent to your preferred pharmacy. You have a follow-up appointment with Dr. Myers on 12/14 @ 11:10am for follow- up of this hospitalization. Please bring all paperwork from your hospital stay. You will need to follow-up with Dr. Esposito in the [facility] Cardiology office as an outpatient in one month as instructed. It was a pleasure taking care of you! Call if you have any questions or problems. You can reach a [facility] hospitalist on duty at [facility] 24 hours a day by calling [phone]. Take care of yourself. Tanesha Olsen, [facility] Hospitalist Current Hospital Diet Patient's current hospital diet: AHA Diet (Heart Healthy) Discharge Diet Recommended Diet: AHA Diet (Heart Healthy) Procedures Procedures Performed: TTE Pending Studies Studies pending at discharge: no Laboratory Results Lipid Panel Test 12/09/16 06:15 Range/Units Triglycerides Level 140 0-150 mg/dl Cholesterol Level 149 0-200 mg/dl HDL Cholesterol 32 mg/dl Cholesterol/HDL Ratio 4.7 LDL Cholesterol, Calculated 89 mg/dl Medical Emergencies . Who to Call and When: Medical Emergencies: If at any time you feel your situation is an emergency, please call 911 immediately. . Non-Emergent Contact Non-Emergency issues call your: Primary Care Provider, [employer] . . "Provider Documentation" section prepared by Tanesha Olsen. VTE Core Measure Inpt VTE Proph given/why not?: Enoxaparin (Lovenox)SQ
--- NOTE | 2016-12-09 15:26 | Discharge Summary ---
Discharge Summary Date of Service Dec 09, 2016. Discharge Summary Admission Date: Dec 08, 2016 at 21:51 Discharge Date: Dec 09, 2016 Discharge Disposition: Home Principal Diagnosis: 1. SVT 2. severe aortic stenosis 3. Bicuspid aortic valve 4. 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 HTN 6. Hypothyroidism 7. Hyperlipidemia 8. Hard of hearing Procedures: TTE: -- Conclusions -- * The study was technically difficult and limited as a reult due to patient characteristics / poor acoustic windows but adequate for the referral indication. * There is moderate concentric left ventricular hypertrophy. * The left ventricular wall motion is normal. * The LV Ejection Fraction = 55-60%. * The aortic valve is severely calcified. * The number of aortic valve cusps cannot be determined. * Moderate aortic regurgitation. * Moderate to borderline severe aortic stenosis is present. * Grade I diastolic dysfunction, (abnormal relaxation pattern). Vaccinations: None. Consultations: Cardiology Medication Reconciliation New Medications: Metoprolol Tartrate (Lopressor) 25 Mg Tab 75 MG PO BID for 30 Days, #180 TAB Take 3 pills twice daily Continued Medications: Acetaminophen (Tylenol) 325 Mg Tab 650 MG PO PRN, TAB Aspirin (Aspirin 81) 81 Mg Tab 81 MG PO DAILY Cholecalciferol (D 1000) 1,000 Unit Tab 1000 INTER.UNIT PO DAILY Ibuprofen Tab (Motrin) 600 Mg Tab 600 MG PO TID PRN for Pain, TAB TAKE WITH FOOD Levothyroxine Sodium (Synthroid) 75 Mcg Tab 75 MCG PO DAILY, TAB Oxycodone Immediate Rel Tab (Roxicodone Ir) 5 Mg Tab 1-2 TAB PO Q4H PRN for Severe Pain, #20 TAB Simvastatin (Zocor) 20 Mg Tab 20 MG PO QPM, TAB Triamterene/Hctz (Triamterene/Hctz 37.5-25MG) 1 Tab Tab 1 TAB PO DAILY, TAB 1 Refill Discontinued Medications: Metoprolol Tartrate (Lopressor) (Lopressor) 50 Mg Tab 50 MG PO BID, TAB Admission Information HPI (per Admitting provider): 61 YO male followed by Dr. Myers for Family Medicine. Followed by Hudson Tidwell PA-C and Dr. Leigh for Cardiology. 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 Experienced chest pain and dyspnea on exertion in 2007. Cardiac cath performed at [facility] on 01/16/[address] Leigh showed minimal luminal irregularities RCA, bicuspid aortic valve, anomalous origin left subclavian artery, LVEF 50%, mild dilatation aortic root. About 2 weeks after cardiac cath in 2007 he had an episode of SVT. SVT has been controlled on metoprolol. This evening around 1900 he developed palpitations and chest pressure while playing cards. Chest pressure was midsternal and did not radiate. No associated dyspnea, nausea, vomiting, sweats, lightheadedness, syncope. Came to ED for evaluation. Noted to be tachycardic. EKG showed regular tachycardia at 160 / min with QRS duration of 100 msec. Received IV adenosine 6 mg followed by 12 mg with conversion to sinus rhythm. Pain-free at time of my assessment. Drinks about 5 cups of coffee a day as well as caffeinated soft drinks. No recent use of decongestants. Does not consume alcohol. No illicit drugs. History of hypothyroidism treated with levothyroxine. TSH was 1.56 on 08/31/16. . Physical Exam (per Admitting): General Appearance: WD/WN, no apparent distress Head: normocephalic, atraumatic Eyes: normal inspection, PERRL, EOMI, sclerae normal ENT: normal ENT inspection, pharynx normal, + pertinent finding (hearing loss) Neck: supple, no adenopathy, thyroid normal, no JVD, trachea midline Respiratory/Chest: lungs clear, no respiratory distress, no accessory muscle use Cardiovascular: regular rate, rhythm, no edema, no gallop, no JVD, normal peripheral pulses, + systolic murmur (III/ systolic murmur heard throughout precordium) Abdomen/GI: normal bowel sounds, non tender, soft, no organomegaly, no pulsatile mass Extremities/Musculoskelatal: normal inspection, no calf tenderness, no pedal edema Neurologic/Psych: alert, oriented x 3, + pertinent finding (PERRL, EOMI, mild dysarthria (chronic)) Skin: normal color, warm/dry, + rash (seborrheic dermatitis) Lymphatic: no adenopathy Hospital Course The patient was seen in the ER with chest pain and an EKG revealed SVT with a heart rate in the 160s. Adenosine was given at 18mg and again at 6mg. He was given ASA 325mg, Lopressor 50mg PO and was admitted to telemetry overnight. Electrolytes and TSH were within normal limits. The patient admitted to drinking 5 cups of coffee daily; he was counseled to cut back on this. Cardiology was consulted. Serial cardiac enzymes were negative, then 0.047, then negative again overnight and the patient remained symptom-free. An echocardiogram revealed a bicuspid aortic valve with calcification and severe aortic stenosis and an EF 55-60%. Per Cards, he should follow up in the office in one month to discuss continued surveillance of the aortic valve with consideration for TWIN and a right/left heart cath. The patient was discharged in good condition to home with outpatient follow-up with PCP in one week. Prior to leaving he was ambulatory, tolerating PO, symptom-free. Total time spent on discharge = 60 minutes This includes examination of the patient, discharge planning, medication reconciliation, and communication with other providers. Discharge Instructions Discharge Instructions Date of Service Dec 09, 2016. Admission Reason for Admission: Svt (Supraventricular Tachycardia) Discharge Discharge Diagnosis / Problem: SVT-resolved Discharge Goals Goal(s): Prevent Disease Progression Activity Recommendations Activity Limitations: resume your previous activity . Instructions / Follow-Up Instructions / Follow-Up Please take all medications as instructed--note new increased dose of Metoprolol. New medications were electronically sent to your preferred pharmacy. You have a follow-up appointment with Dr. Myers on 12/14 @ 11:10am for follow- up of this hospitalization. Please bring all paperwork from your hospital stay. You will need to follow-up with Dr. Esposito in the [facility] Cardiology office as an outpatient in one month as instructed. It was a pleasure taking care of you! Call if you have any questions or problems. You can reach a [facility] hospitalist on duty at [facility] 24 hours a day by calling [phone]. Take care of yourself. Tanesha Olsen, DO [facility] Center[facility] Additional Copies To Jose M Esposito D.O.; Hudson Myers M.D.
[2016-12-09] MEDS ORDERED: SIMVASTATIN 20 MG TAB PO SCH (21:00)
== END 2016-12-09 15:45 | disposition home or self-care (01) ==
LOC: ENRESERVTM → ENRESERVDT → C.EDB 19:47 → C.2T 21:51
PROVIDERS: ADMIT Hospitalist; ATTEND Hospitalist
DX: I47.1 Supraventricular tachycardia (principal); I35.0 Nonrheumatic aortic (valve) stenosis; Q23.1 Congenital insufficiency of aortic valve; I10 Essential (primary) hypertension; E03.9 Hypothyroidism, unspecified; E78.5 Hyperlipidemia, unspecified; F17.200 Nicotine dependence, unspecified, uncomplicated; M19.90 Unspecified osteoarthritis, unspecified site; M54.2 Cervicalgia; F17.290 Nicotine dependence, other tobacco product, uncomplicated; Z88.0 Allergy status to penicillin; Z96.642 Presence of left artificial hip joint; Z79.82 Long term (current) use of aspirin; Z86.010 Personal history of colon polyps; Z83.3 Family history of diabetes mellitus; Z82.49 Family history of ischemic heart disease and other diseases of the circulatory system

== ENCOUNTER 2017-02-03 20:38 | Emergency (ER) | payer OTHER ==
[~2017-02-03] VITALS: Ht 172.7 cm; Wt 102.0 kg
[~2017-02-03 20:38] MED LIST changes: -BRIM1GEL TD; -CHOL100010 PO; +CHOL1TAB53 PO; -DYZ PO; +LPR25 PO; -METO50TA16 PO; +TRIATAB3 PO
[2017-02-03 20:40] VITALS: Ht 172.7 cm; Wt 102.0 kg
[2017-02-03 21:00] VITALS: O2SAT 95
--- NOTE | 2017-02-03 21:24 | DIAGNOSTIC IMAGING REPORT ---
CHEST ONE VIEW PORTABLE CLINICAL HISTORY: B06 - Chest pain, SVT chest pain COMPARISON STUDY: 12/08/2016 FINDINGS: Calcified granuloma right upper lobe unchanged. No evidence for cardiac enlargement. Diaphragms are smooth. Subtle interstitial change left base considered chronic. IMPRESSION: No acute process. Electronically signed by: Hudson Mejia M.D. 02/03/2017 9:22 PM Dictated Date/Time: 02/03/2017 9:22 PM
[2017-02-03 21:31] LABS: PARTIAL THROMBOPLASTIN RATIO 1.2; PROTHROMBIN TIME (PATIENT) 10.9 SECONDS (9.0-12.0)
[2017-02-03 21:32] LABS: BUN/CREATININE RATIO 18.3 (10-20); CREATININE 1.2 mg/dl (0.60-1.40); POTASSIUM 3.2 mmol/L (3.5-5.1)
[2017-02-03 21:36] LABS: ALB/GLOB RATIO 0.8 (0.9-2); CKMB/CK RATIO 1.9 (0-3.0)
[2017-02-03 21:38] LABS: MEAN CELL VOLUME 89.3 fL (80-100); MEAN CORPUSCULAR HEMOGLOBIN 29.2 pg (25-34); MEAN CORPUSCULAR HGB CONC 32.7 g/dl (32-36); PLATELET COUNT 164 K/uL (130-400); RED BLOOD COUNT 5.04 M/uL (4.7-6.1); WHITE BLOOD COUNT 8.47 K/uL (4.8-10.8)
--- NOTE | 2017-02-03 21:39 | EMERGENCY ROOM VISIT NOTE ---
History Report prepared by Kaleeibfarhan: Daniel Sherwood Under the Supervision of: Dr. Albin Caruso D.O. First contact with patient: 21:29 Chief Complaint: CHEST PAIN Stated Complaint: CHEST PAIN,IRREGULAR HEARTBEAT Nursing Triage Summary: Triage Notes: Pt felt like his chest was being stepped on, sweats, pt felt his heart racing. per patients HR was in the 180s at home. Pt recently here with SVT. Pt states he is feeling better now, denies any dizzy/SOB. History of Present Illness The patient is a 61 year old male with a history of SVT who presents to the Emergency Room with complaints of resolved chest pain that occurred earlier tonight. The patient "felt like somebody was stepping on his chest" earlier tonight. He was also tachycardic in the 180s. His symptoms improved after holding his breath and he is now feeling better. He denies shortness of breath. The patient has a history of SVT, for which he was admitted this past November. The patient was cardioverted with Adenosine in November. He has never had an ablation. Source of History: patient Onset: tonight Position: chest Quality: other ("felt like somebody was stepping on his chest") Timing: resolved Associated Symptoms: No SOB Review of Systems See HPI for pertinent positives and negatives. A total of ten systems were reviewed and were otherwise negative. 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 (2) Bicuspid aortic valve (3) Cervicalgia (4) Dilated aortic root (5) Dyslipidemia (6) History of adenomatous polyp of colon (7) History of supraventricular tachycardia (8) Hypertension (9) Hypothyroidism (10) Osteoarthros Nos-Pelvis Surgical Problems: (1) Status post cardiac catheterization (2) Status post cardiac surgery (3) Status post colonoscopy (4) Status post left hip replacement (5) Status post lumbar surgery Family History Coronary artery disease FATHER Diabetes mellitus MOTHER Heart disease MOTHER Social History Smoking Status: Never Smoker Drug Use: none Marital Status: Housing Status: lives with significant other Occupation Status: disabled Current/Historical Medications Scheduled Acetaminophen (Tylenol), 650 MG PO PRN Aspirin (Aspirin 81), 81 MG PO DAILY Cholecalciferol (D 1000), 1,000 INTER.UNIT PO DAILY Levothyroxine Sodium (Synthroid), 75 MCG PO DAILY Metoprolol Tartrate (Lopressor) (Lopressor), 75 MG PO BID Simvastatin (Zocor), 20 MG PO QPM Triamterene/Hctz (Triamterene/Hctz 37.5-25MG), 1 TAB PO DAILY Allergies Coded Allergies: Penicillins (Verified Allergy, Unknown, HIVES, SOB, G I UPSET, 12/08/16) Physical Exam Vital Signs Date Time Temp Pulse Resp B/P Pulse Ox O2 Delivery O2 Flow Rate FiO2 02/03/17 22:13 76 14 109/67 96 02/03/17 22:08 75 16 95 02/03/17 22:01 109/67 02/03/17 21:38 78 15 96 02/03/17 21:31 101/64 02/03/17 21:13 82 18 123/75 95 Room Air 02/03/17 21:08 81 17 95 02/03/17 21:04 123/75 02/03/17 21:00 36.8 89 18 128/77 95 Room Air 02/03/17 21:00 95 Room Air 02/03/17 21:00 95 Room Air 02/03/17 20:54 146/78 02/03/17 20:40 36.8 89 18 128/77 93 Room Air Physical Exam GENERAL: Awake, alert, well-appearing, in no distress HENT: Normocephalic, atraumatic. Oropharynx unremarkable. EYES: Normal conjunctiva. Sclera non-icteric. NECK: Supple. No nuchal rigidity. FROM. No JVD. RESPIRATORY: Clear to auscultation. CARDIAC: Regular rate, normal rhythm. Extremities warm and well perfused. Pulses equal. ABDOMEN: Soft, non-distended. No tenderness to palpation. No rebound or guarding. No masses. RECTAL: Deferred. MUSCULOSKELETAL: Chest examination reveals no tenderness. The back is symmetrical on inspection without obvious abnormality. There is no CVA tenderness to palpation. No joint edema. LOWER EXTREMITIES: Calves are equal size bilaterally and non-tender. No edema. No discoloration. NEURO: Normal sensorium. No sensory or motor deficits noted. SKIN: No rash or jaundice noted. Medical Decision & Procedures ER Provider Diagnostic Interpretation: X-ray: Per my interpretation, and the radiologist's interpretation. CHEST ONE VIEW PORTABLE CLINICAL HISTORY: B06 - Chest pain, SVT chest pain COMPARISON STUDY: 12/08/2016 FINDINGS: Calcified granuloma right upper lobe unchanged. No evidence for cardiac enlargement. Diaphragms are smooth. Subtle interstitial change left base considered chronic. IMPRESSION: No acute process. Electronically signed by: Hudson Mejia M.D. 02/03/2017 9:22 PM Dictated Date/Time: 02/03/2017 9:22 PM Laboratory Results 02/03/17 21:00 02/03/17 21:00 Test 02/03/17 21:00 02/03/17 21:08 Red Blood Count 5.04 M/uL (4.7-6.1) Mean Corpuscular Volume 89.3 fL (80-100) Mean Corpuscular Hemoglobin 29.2 pg (25-34) Mean Corpuscular Hemoglobin Concent 32.7 g/dl (32-36) RDW Standard Deviation 44.9 fL (36.4-46.3) RDW Coefficient of Variation 13.7 % (11.5-14.5) Mean Platelet Volume 13.0 fL (7.4-10.4) Prothrombin Time 10.9 SECONDS (9.0-12.0) Prothromb Time International Ratio 1.0 (0.9-1.1) Activated Partial Thromboplast Time 30.2 SECONDS (21.0-31.0) Partial Thromboplastin Ratio 1.2 Anion Gap 8.0 mmol/L (3-11) Est Creatinine Clear Calc Drug Dose 75.8 ml/min Estimated GFR () 75.7 Estimated GFR (Non- 65.3 BUN/Creatinine Ratio 18.3 (10-20) Calcium Level 9.2 mg/dl (8.5-10.1) Total Bilirubin 0.4 mg/dl (0.2-1) Aspartate Amino Transf (AST/SGOT) 24 U/L (15-37) Alanine Aminotransferase (ALT/SGPT) 43 U/L (12-78) Alkaline Phosphatase 102 U/L (45-117) Total Creatine Kinase 75 U/L (39-308) Creatine Kinase MB 1.4 ng/ml (0.5-3.6) Creatine Kinase MB Ratio 1.9 (0-3.0) Total Protein 8.5 gm/dl (6.4-8.2) Albumin 3.7 gm/dl (3.4-5.0) Globulin 4.8 gm/dl (2.5-4.0) Albumin/Globulin Ratio 0.8 (0.9-2) Bedside Troponin I 0.000 ng/ml (0-0.045) Laboratory results reviewed by me Medications Administered Medications (Trade) Dose Ordered Sig/Deepak Route Start Time Stop Time Status Last Admin Dose Admin Potassium Chloride (Klor-Con M10) 40 meq NOW STAT PO 02/03/17 22:01 02/03/17 22:02 DC 02/03/17 22:09 40 MEQ ECG Indication: chest pain Rate (beats per minute): 85 Rhythm: normal sinus Findings: 1st degree AV block, no acute ischemic change, other (normal axis) ED Course 2129: The patient was evaluated in room B6. A complete history and physical exam was performed. 2200: Potassium Chloride 40 meq PO. 2225: I reevaluated the patient. He is feeling good and has not reentered SVT .Discussed results and discharge instructions: He verbalized understanding and agreement. The patient is ready for discharge. Medical Decision Differential diagnosis includes cardiac dysrhythmia, SVT, electrolyte abnormality. Repeat examination patient's resting in no distress no evidence of SVT he's in a normal sinus rhythm with normal vital signs. I discussed the workup with the patient and his at bedside at 2229. Impression Primary Impression: Paroxysmal SVT (supraventricular tachycardia) Additional Impression: Hypokalemia Scribe Attestation The scribe's documentation has been prepared under my direction and personally reviewed by me in its entirety. I confirm that the note above accurately reflects all work, treatment, procedures, and medical decision making performed by me. Departure Information Dispostion Home / Self-Care Referrals Hudson Myers M.D. (PCP) Forms HOME CARE DOCUMENTATION FORM, IMPORTANT VISIT INFORMATION Patient Instructions My [facility], Understanding Supraventricular Tachycardia SVT Problem Qualifiers
[2017-02-03] MEDS ORDERED: POTASSIUM CHLORIDE 10 MEQ TABCR PO STA (22:01)
[2017-02-03 22:12] LABS: CALCIUM 9.2 mg/dl (8.5-10.1)
[2017-02-03] MEDS ORDERED: METO25TA56 PO (22:20)
[2017-02-03 22:46] VITALS: BP 115/80; PULSE 71; TEMP 36.8; O2SAT 97
[2017-07-20] MEDS ORDERED: METO50TA16 PO (11:17)
[2017-07-20] MEDS ORDERED: CRD200 PO (11:17)
[2017-07-20] MEDS ORDERED: POTA10CA28 PO (11:17)
[2017-07-24] MEDS ORDERED: TRIATAB3 PO (06:56)
[2017-07-24] MEDS ORDERED: METO50TA16 PO (06:56)
[2017-07-24] MEDS ORDERED: IBUP-1450 PO (06:57)
[2017-07-24] MEDS ORDERED: BRIM1GEL (06:57)
[2017-07-24] MEDS ORDERED: AMIO200T4 PO (07:10)
== END 2017-02-03 22:47 | disposition home or self-care (01) ==
LOC: C.EDB 20:38
DX: I47.2 Ventricular tachycardia (principal); E87.6 Hypokalemia; Q23.1 Congenital insufficiency of aortic valve; E78.5 Hyperlipidemia, unspecified; Z86.010 Personal history of colon polyps; I10 Essential (primary) hypertension; E03.9 Hypothyroidism, unspecified; Z96.642 Presence of left artificial hip joint; I25.10 Atherosclerotic heart disease of native coronary artery without angina pectoris; Z83.3 Family history of diabetes mellitus; Z79.82 Long term (current) use of aspirin; Z79.899 Other long term (current) drug therapy

== ENCOUNTER 2017-05-20 18:51 | Emergency (ER) | payer OTHER ==
[~2017-05-20] VITALS: Ht 172.7 cm; Wt 100.0 kg
[~2017-05-20 18:51] MED LIST changes: -IBUP-1427 PO; -LPR25 PO; +METO25TA56 PO; -OXYC1TAB3 PO
[2017-05-20 18:53] VITALS: TEMP 36.7; Ht 172.7 cm; Wt 100.0 kg
[2017-05-20 18:58] VITALS: O2SAT 98
[2017-05-20] MEDS ORDERED: ADENOSINE IV SOLN 3 MG/ML 2 ML VIAL ONE ×3 (19:05→19:19)
[2017-05-20] MEDS ORDERED: SODIUM CHLORIDE 0.9% 500ML 500 ML IV STA ×2 (19:13→20:01)
--- NOTE | 2017-05-20 19:16 | EMERGENCY ROOM VISIT NOTE ---
History Report prepared by Kaleeibe: Stephanie Kenny Under the Supervision of: Dr. Dimas Ochoa M.D. First contact with patient: 18:58 Chief Complaint: RAPID HEART RATE Stated Complaint: RAPID HEARTRATE History of Present Illness The patient is a 62 year old male who presents to the Emergency Room with complaints of a persistent rapid heart rate that started approximately 45 minutes prior to arrival. He is accompanied by his . His reports he has experienced a fast heart rate "3 to 4 times in the past year". The patient denies any formal diagnoses associated with these episodes. He complains of pain in the middle of his chest, stating "I feel like someone punched me". He has been able to get his heart rate to "break" in the past, but states it would not stop today even after home remedies, so he decided to come to the ED. He admits to some minor shortness of breath. He denies any recent ETOH use. He complains of feeling thirsty and experiencing dry mouth, stating "I could not get enough to drink last night". The patient denies any recent fevers, cough or cold symptoms, diarrhea or vomiting. His notes he has complained of feeling tired recently. The patient states he felt well earlier today. He denies any strenuous activity or exertion today. His PCP is Dr. Myers at [facility]. Source of History: patient, spouse/significant other () Onset: [address] Position: chest Quality: other (rapid heart rate) Timing: other (persistent) Modifying Factors (Relieving): other (home remedies) Associated Symptoms: + chest pain, + SOB, + fatigue, No fevers, No cough ( or cold symptoms), No vomiting, No diarrhea Review of Systems See HPI for pertinent positives & negatives. A total of 10 systems reviewed and were otherwise negative. 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 (2) Bicuspid aortic valve (3) Cervicalgia (4) Dilated aortic root (5) Dyslipidemia (6) History of adenomatous polyp of colon (7) History of supraventricular tachycardia (8) Hypertension (9) Hypothyroidism (10) Osteoarthros Nos-Pelvis Surgical Problems: (1) Status post cardiac catheterization (2) Status post cardiac surgery (3) Status post colonoscopy (4) Status post left hip replacement (5) Status post lumbar surgery Family History Coronary artery disease FATHER Diabetes mellitus MOTHER Heart disease MOTHER Social History Smoking Status: Never Smoker Alcohol Use: occasionally Drug Use: none Marital Status: Housing Status: lives with significant other Occupation Status: disabled Current/Historical Medications Scheduled Acetaminophen (Tylenol), 650 MG PO PRN Aspirin (Aspirin 81), 81 MG PO DAILY Cholecalciferol (D 1000), 1,000 INTER.UNIT PO DAILY Levothyroxine Sodium (Synthroid), 75 MCG PO DAILY Metoprolol Tartrate (Lopressor) (Lopressor), 75 MG PO BID Simvastatin (Zocor), 20 MG PO QPM Triamterene/Hctz (Triamterene/Hctz 37.5-25MG), 1 TAB PO DAILY Allergies Coded Allergies: Penicillins (Verified Allergy, Unknown, HIVES, SOB, G I UPSET, 05/20/17) Physical Exam Vital Signs Date Time Temp Pulse Resp B/P (MAP) Pulse Ox O2 Delivery O2 Flow Rate FiO2 05/20/17 22:01 72 16 110/72 96 05/20/17 20:13 84 94/65 97 Nasal Cannula 2.0 05/20/17 19:35 92 136/79 05/20/17 19:30 103 05/20/17 19:30 92 05/20/17 19:29 82 05/20/17 19:28 86 16 136/79 96 Nasal Cannula 2.0 05/20/17 19:25 91 16 140/86 98 Nasal Cannula 2.0 05/20/17 19:17 153 20 113/89 98 Nasal Cannula 2.0 05/20/17 19:03 157 05/20/17 18:58 98 Room Air 05/20/17 18:58 98 Room Air 05/20/17 18:53 36.7 171 20 123/87 93 Room Air Physical Exam GENERAL: Patient is in no acute distress. HEENT: No acute trauma, normocephalic atraumatic, mucous membranes moist, no nasal congestion, no scleral icterus. NECK: No stridor, no adenopathy, no meningismus, trachea is midline. LUNGS: Clear to auscultation bilaterally, no wheeze, no rhonchi, breath sounds equal. HEART: Tachycardic and regular, with a 2/6 systolic murmur. ABDOMEN: Soft, nontender, bowel sounds positive, no hernias, no peritonitis. EXTREMITIES: No cyanosis or edema, full range of motion of all the joints without pain or difficulty, no signs for acute trauma. NEUROLOGIC: Oriented x 3, no acute motor or sensory deficits, no focal weakness. SKIN: No rash, no jaundice, no diaphoresis. Medical Decision & Procedures Laboratory Results 05/20/17 19:00 05/20/17 19:00 Test 05/20/17 19:00 05/20/17 21:08 Red Blood Count 5.47 M/uL (4.7-6.1) Mean Corpuscular Volume 89.8 fL (80-100) Mean Corpuscular Hemoglobin 28.9 pg (25-34) Mean Corpuscular Hemoglobin Concent 32.2 g/dl (32-36) RDW Standard Deviation 46.4 fL (36.4-46.3) RDW Coefficient of Variation 14.2 % (11.5-14.5) Mean Platelet Volume 12.9 fL (7.4-10.4) Anion Gap 6.0 mmol/L (3-11) Est Creatinine Clear Calc Drug Dose 63.5 ml/min Estimated GFR () 62.4 Estimated GFR (Non- 53.8 BUN/Creatinine Ratio 19.1 (10-20) Calcium Level 9.0 mg/dl (8.5-10.1) Magnesium Level 2.1 mg/dl (1.8-2.4) Total Bilirubin 0.4 mg/dl (0.2-1) Aspartate Amino Transf (AST/SGOT) 37 U/L (15-37) Alanine Aminotransferase (ALT/SGPT) 58 U/L (12-78) Alkaline Phosphatase 108 U/L (45-117) Total Protein 9.0 gm/dl (6.4-8.2) Albumin 4.0 gm/dl (3.4-5.0) Globulin 5.0 gm/dl (2.5-4.0) Albumin/Globulin Ratio 0.8 (0.9-2) Thyroid Stimulating Hormone (TSH) 3.460 uIu/ml (0.300-4.500) Free Thyroxine 0.89 ng/dl (0.80-1.60) Bedside Troponin I < 0.030 ng/ml (0-0.045) Laboratory results reviewed by me. Medications Administered Medications (Trade) Dose Ordered Sig/Deepak Route Start Time Stop Time Status Last Admin Dose Admin Adenosine (Adenosine IV) 6 mg STK-MED ONCE .ROUTE 05/20/17 19:05 05/20/17 19:06 DC 05/20/17 19:05 12 MG Adenosine (Adenosine IV) 6 mg STK-MED ONCE .ROUTE 05/20/17 19:10 05/20/17 19:11 DC 05/20/17 19:15 6 MG Sodium Chloride 500 ml @ 999 mls/hr Q31M STAT IV 05/20/17 19:13 05/20/17 19:43 DC 05/20/17 19:13 999 MLS/HR Adenosine (Adenosine IV) 6 mg STK-MED ONCE .ROUTE 05/20/17 19:19 05/20/17 19:20 DC 05/20/17 19:00 6 MG Metoprolol Tartrate (Lopressor Iv) 5 mg STK-MED ONCE .ROUTE 05/20/17 19:24 05/20/17 19:25 DC 05/20/17 19:35 5 MG Sodium Chloride 500 ml @ 999 mls/hr Q31M STAT IV 05/20/17 20:01 05/20/17 20:31 DC 05/20/17 20:13 999 MLS/HR Procedure Chemical Cardioversion: The patient received 6 mg of IV Adenosine with a rapid flush. There was no change in his rhythm. He received an additional 6 mg of IV Adenosine with a rapid flush with no change in his rhythm. He then received 12 mg of IV Adenosine with a rapid flush, his rhythm broke to a sinus rhythm. He felt improved. ECG Indication: tachycardia Rate (beats per minute): 159 Rhythm: other (wide-complex tachycardia) Findings: no acute ischemic change, no ectopy Comparison ECG Date: Compared to previous EKG, QRS complex is wider and rate is faster Change: Repeat EKG on 05/20/17: Normal sinus rhythm, rate of 98, old inferior infarct, some ST depressions laterally, no ectopy, compared to previous EKG from November 2016, ST depressions laterally are new. ST depressions had been seen on EKG from 11/2016. ED Course 1900: The patient was evaluated in room A11. A complete history and physical exam was performed. 1904: Adenosine 6 mg IV. 0: Adenosine 6 mg IV. 1912: NSS 500 ml @ 999 mls/hr IV. 1918: Adenosine 12 mg IV. 1923: Lopressor 5 mg IV. 2000: NSS 500 ml @ 999 mls/hr IV. 2034: I reevaluated the patient. He feels better and is anxious to go home. 2137: I reevaluated the patient. He is still feeling well. I discussed his results and discharge instructions and he verbalized complete understanding and agreement. Medical Decision The differential diagnoses considered include SVT, ventricular tachycardia, atrial fibrillation or atrial flutter, dehydration, electrolyte imbalance and cardiac ischemia. There is no leukocytosis or concerning anemia. No significant electrolyte abnormality, kidney failure or hepatitis. EKG initially showed a wide complex tachycardia thought to likely be an SVT given his past history and given the previous EKGs. Cardiac enzyme testing 2 was not consistent with acute cardiac injury. The patient appeared to be in a euthyroid state. The patient was felt to be an SVT. I did attempt vagal maneuvers however, these were unsuccessful. He then received Adenosine as noted above, he required 12 mg IV for chemical cardioversion. Repeat EKG showed a normal sinus rhythm with some mild ST changes laterally. These type of changes have been seen on a few of his previous EKGs. No evidence for acute AK by EKG. The patient did receive IV saline, he was given a small dose of IV Lopressor. He is currently resting comfortably. He does not want to stay in the hospital. He will talk with his doctor this week about today's events. He has already talked to cardiology about ablation. Medication Reconcilliation Current Medication List: was personally reviewed by me Blood Pressure Screening Patient's blood pressure: Normal blood pressure Blood pressure disposition: Did not require urgent referral Impression Primary Impression: SVT (supraventricular tachycardia) Critical Care I have personally spent greater than 30 minutes of critical care time in the direct management of this patient. This includes bedside care, interpretation of diagnostic studies and testing, discussion with consultants, the patient, and family members, and other required patient management activities. This 30 minutes is in excess of all separately billable procedures. Scribe Attestation The scribe's documentation has been prepared under my direction and personally reviewed by me in its entirety. I confirm that the note above accurately reflects all work, treatment, procedures, and medical decision making performed by me. Departure Information Dispostion Home / Self-Care Referrals Hudson Myers M.D. (PCP) Patient Instructions My [facility] Additional Instructions stay well hydrated see your doctor this week for a follow up appt return if worsening or have return of symptoms
[2017-05-20] MEDS ORDERED: METOPROLOL TARTRATE 1 MG/ML VIAL ONE (19:24)
[2017-05-20 19:27] LABS: HEMATOCRIT 49.1 % (42-52); MEAN CELL VOLUME 89.8 fL (80-100); MEAN CORPUSCULAR HEMOGLOBIN 28.9 pg (25-34); MEAN CORPUSCULAR HGB CONC 32.2 g/dl (32-36); MEAN PLATELET VOLUME 12.9 fL (7.4-10.4); PLATELET COUNT 160 K/uL (130-400); RED BLOOD COUNT 5.47 M/uL (4.7-6.1); WHITE BLOOD COUNT 10.31 K/uL (4.8-10.8)
[2017-05-20 19:35] LABS: BUN/CREATININE RATIO 19.1 (10-20); CREATININE 1.4 mg/dl (0.60-1.40); MAGNESIUM 2.1 mg/dl (1.8-2.4); POTASSIUM 3.6 mmol/L (3.5-5.1)
[2017-05-20 19:46] LABS: ALB/GLOB RATIO 0.8 (0.9-2); THYROID STIMULATING HORMONE 3.46 uIu/ml (0.300-4.500)
[2017-05-20 22:01] VITALS: BP 110/72; PULSE 72; O2SAT 96
== END 2017-05-20 22:01 | disposition home or self-care (01) ==
LOC: C.EDB 18:52 → C.EDA 22:01
DX: I47.1 Supraventricular tachycardia (principal); I10 Essential (primary) hypertension; E78.5 Hyperlipidemia, unspecified; E03.9 Hypothyroidism, unspecified; Z87.19 Personal history of other diseases of the digestive system; Z96.642 Presence of left artificial hip joint; Z98.890 Other specified postprocedural states; Z79.82 Long term (current) use of aspirin; Z79.899 Other long term (current) drug therapy

== ENCOUNTER 2017-07-05 12:30 | Emergency (ER) | payer OTHER ==
[2017-07-05 12:36] VITALS: TEMP 37
[2017-07-05] MEDS ORDERED: FENTANYL CITRATE INJ 50 MCG/1 ML 2 ML VIAL ONE (12:38)
[2017-07-05] MEDS ORDERED: MIDAZOLAM HCL 5 MG/ML 2ML VIAL ONE (12:38)
[2017-07-05] MEDS ORDERED: ADENOSINE IV SOLN 3 MG/ML 2 ML VIAL ONE (12:40)
[2017-07-05] MEDS ORDERED: SODIUM CHLORIDE 0.9% 1000ML 1,000 ML IV STA (12:46)
--- NOTE | 2017-07-05 12:47 | EMERGENCY ROOM VISIT NOTE ---
History Report prepared by Luis: Dev Meléndez Under the Supervision of: Dr. Stacia Donald M.D. First contact with patient: 12:34 Chief Complaint: CHEST PAIN Stated Complaint: CHEST PAIN History of Present Illness The patient is a 62 year old male who presents to the Emergency Room with complaints of a persistent rapid heart rate that started around 30 minutes ago. He was driven here by his mother. Per the nursing staff, the patient was sitting and started to sweat, with a bit of chest pain. He notes that he took his heart rate at home before coming in. The patient has a history of heart problems, and the first time an episode like this occurred was in 2005. He has followed-up with Dr. Morin, and on notes the patient has been diagnosed with supraventricular tachycardia. The patient's past EKG's appear to be wide complex tachycardia. The patient also has a history of low potassium. The patient states that he took Pepto-Bismol earlier today, and he last ate last night. Source of History: patient, nursing staff Onset: Around 30 minutes ago Position: chest Quality: other (rapid heart rate) Timing: other (persistent) Associated Symptoms: + diaphoresis, + chest pain Note: No other associated symptoms noted. Review of Systems See HPI for pertinent positives & negatives. A total of 10 systems reviewed and were otherwise negative. 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 (2) Bicuspid aortic valve (3) Cervicalgia (4) Dilated aortic root (5) Dyslipidemia (6) History of adenomatous polyp of colon (7) History of supraventricular tachycardia (8) Hypertension (9) Hypothyroidism (10) Osteoarthros Nos-Pelvis Surgical Problems: (1) Status post cardiac catheterization (2) Status post cardiac surgery (3) Status post colonoscopy (4) Status post left hip replacement (5) Status post lumbar surgery Family History Coronary artery disease FATHER Diabetes mellitus MOTHER Heart disease MOTHER Social History Smoking Status: Never Smoker Alcohol Use: occasionally Drug Use: none Marital Status: Housing Status: lives with significant other Occupation Status: disabled Current/Historical Medications Scheduled Levothyroxine Sodium (Synthroid), 75 MCG PO DAILY Metoprolol Tartrate (Lopressor) (Lopressor), 75 MG PO BID Simvastatin (Zocor), 20 MG PO QPM Triamterene/Hctz (Triamterene/Hctz 37.5-25MG), 1 TAB PO DAILY Allergies Coded Allergies: Penicillins (Verified Allergy, Unknown, HIVES, SOB, G I UPSET, 05/20/17) Physical Exam Vital Signs Date Time Temp Pulse Resp B/P (MAP) Pulse Ox O2 Delivery O2 Flow Rate FiO2 07/05/17 15:29 72 18 109/52 98 Room Air 07/05/17 14:00 77 16 105/74 97 Nasal Cannula 2.0 07/05/17 13:15 81 100/65 07/05/17 13:00 2.0 07/05/17 12:56 104 104/67 97 Nasal Cannula 2.0 07/05/17 12:45 63 07/05/17 12:44 147 100/76 07/05/17 12:43 152 07/05/17 12:38 149 101/79 Room Air 07/05/17 12:36 37.0 148 20 119/70 98 Room Air Physical Exam Vital signs reviewed. General: Somewhat ill-appearing 62 year old male, in mild distress. Speaks with a lisp. Hard of hearing. HEENT: No scleral icterus, PERRLA, neck supple. Atraumatic. Cardiovascular: Tachycardic rate and regular rhythm, no extra sounds. Pulmonary: Clear to auscultation bilaterally, normal work of breathing. Abdomen: Soft, nontender, nondistended, positive bowel sounds. Musculoskeletal: Atraumatic, no peripheral edema. Neurologic: Patient awake alert and oriented x 3 Skin: Warm, dry, no rash Medical Decision & Procedures ER Provider Diagnostic Interpretation: X-ray results as stated below per interpretation by me and the radiologist: CHEST ONE VIEW PORTABLE HISTORY: 62 years-old Male chest pain, SVT acute atypical chest pain COMPARISON: Chest radiograph 02/03/2017, CTA chest 12/08/2016 TECHNIQUE: Portable upright AP view of the chest FINDINGS: Cardiac mediastinal and hilar silhouettes are within normal limits. There is atherosclerosis of the aorta. Calcified granuloma of the posterior segment right upper lobe appears unchanged. No pneumothorax, pleural effusion, focal airspace consolidation or overt pulmonary edema. The bones of the chest are grossly intact. IMPRESSION: No acute cardiopulmonary process. The above report was generated using voice recognition software. It may contain grammatical, syntax or spelling errors. Electronically signed by: Devan Rosen M.D. 07/05/2017 1:13 PM Dictated Date/Time: 07/05/2017 1:12 PM Laboratory Results 07/05/17 12:40 Red Blood Count 5.00, Mean Corpuscular Volume 87.0, Mean Corpuscular Hemoglobin 30.6, Mean Corpuscular Hemoglobin Concent 35.2, Mean Platelet Volume 12.8, Neutrophils (%) (Auto) 51.1, Lymphocytes (%) (Auto) 39.5, Monocytes (%) (Auto) 6.8, Eosinophils (%) (Auto) 2.0, Basophils (%) (Auto) 0.4, Neutrophils # (Auto) 5.35, Lymphocytes # (Auto) 4.13, Monocytes # (Auto) 0.71, Eosinophils # (Auto) 0.21, Basophils # (Auto) 0.04 07/05/17 12:40 Test 07/05/17 12:40 07/05/17 13:22 White Blood Count 10.46 K/uL (4.8-10.8) Red Blood Count 5.00 M/uL (4.7-6.1) Hemoglobin 15.3 g/dL (14.0-18.0) Hematocrit 43.5 % (42-52) Mean Corpuscular Volume 87.0 fL (80-100) Mean Corpuscular Hemoglobin 30.6 pg (25-34) Mean Corpuscular Hemoglobin Concent 35.2 g/dl (32-36) Platelet Count 158 K/uL (130-400) Mean Platelet Volume 12.8 fL (7.4-10.4) Neutrophils (%) (Auto) 51.1 % Lymphocytes (%) (Auto) 39.5 % Monocytes (%) (Auto) 6.8 % Eosinophils (%) (Auto) 2.0 % Basophils (%) (Auto) 0.4 % Neutrophils # (Auto) 5.35 K/uL (1.4-6.5) Lymphocytes # (Auto) 4.13 K/uL (1.2-3.4) Monocytes # (Auto) 0.71 K/uL (0.11-0.59) Eosinophils # (Auto) 0.21 K/uL (0-0.5) Basophils # (Auto) 0.04 K/uL (0-0.2) RDW Standard Deviation 45.4 fL (36.4-46.3) RDW Coefficient of Variation 14.2 % (11.5-14.5) Immature Granulocyte % (Auto) 0.2 % Immature Granulocyte # (Auto) 0.02 K/uL (0.00-0.02) Anion Gap 9.0 mmol/L (3-11) Estimated GFR () 68.3 Estimated GFR (Non- 58.9 BUN/Creatinine Ratio 14.6 (10-20) Calcium Level 8.9 mg/dl (8.5-10.1) Phosphorus Level 2.8 mg/dl (2.5-4.9) Magnesium Level 2.1 mg/dl (1.8-2.4) Total Bilirubin 0.5 mg/dl (0.2-1) Direct Bilirubin 0.1 mg/dl (0-0.2) Aspartate Amino Transf (AST/SGOT) 28 U/L (15-37) Alanine Aminotransferase (ALT/SGPT) 42 U/L (12-78) Alkaline Phosphatase 87 U/L (45-117) Total Creatine Kinase 113 U/L (39-308) Creatine Kinase MB 1.9 ng/ml (0.5-3.6) Creatine Kinase MB Ratio 1.7 (0-3.0) Total Protein 8.4 gm/dl (6.4-8.2) Albumin 3.9 gm/dl (3.4-5.0) Thyroid Stimulating Hormone (TSH) 3.470 uIu/ml (0.300-4.500) Bedside Troponin I < 0.030 ng/ml (0-0.045) Laboratory results per my review. Medications Administered Medications (Trade) Dose Ordered Sig/Deepak Route Start Time Stop Time Status Last Admin Dose Admin Adenosine (Adenosine Iv) 18 mg STK-MED ONCE .ROUTE 07/05/17 12:40 07/05/17 12:41 DC 07/05/17 12:51 18 MG Sodium Chloride 1,000 ml @ 150 mls/hr Q6H40M STAT IV 07/05/17 12:46 07/05/17 16:36 DC 07/05/17 12:50 150 MLS/HR ECG Indication: palpitations Rate (beats per minute): 152 Rhythm: other (wide complex tachycardia, SVT vs ventricular tachycardia) Findings: left axis deviation, other (LBBB) Change: Repeat ECG: Sinus rhythm with a 1st degree AV block with a PVC. Previous septal infarct, previous inferior infarct. ST abnormality in lateral leads. ED Course 1234: Past medical records reviewed. The patient was evaluated in room B10. A complete history and physical examination was performed. 1246: Ordered NSS 1000 ml @ 150 mls/hr IV. 1443: Upon reevaluation, the patient appeared to have improvement of his symptoms. I discussed findings with him. He verbalized agreement of the treatment plan. He was discharged home. Medical Decision Differential diagnosis: Etiologies such as premature contractions, electrolyte abnormality, cardiac dysrhythmia, thyroid dysfunction, pulmonary embolism, infection, gastrointestinal, as well as others were entertained. This patient was evaluated and appeared to be in no significant distress. IV access was obtained and laboratory work was drawn. Patient is found be in a wide-complex tachycardia on the threat monitoring analyst. Blood pressure remained stable. The patient is pale and slightly diaphoretic. Patient was placed on the defibrillator. Quick review the patient's past medical history indicates a left bundle branch block with a history of SVT. 6 mg of IV adenosine was administered with no significant results. 12 mg of adenosine was administered with good result. Patient returned to a sinus rhythm. Laboratory work is unrevealing. Chest x-ray was obtained and is negative for failure or focal lung consolidation. Patient was feeling much improved. He was observed in the ER for several hours without recurrence. Patient will be discharged follow-up with his traffic agent regarding the SVT. He will return to the ER for worsening of symptoms or any medical concerns. Medication Reconcilliation Current Medication List: was personally reviewed by me Blood Pressure Screening Patient's blood pressure: Normal blood pressure Impression Primary Impression: SVT (supraventricular tachycardia) Additional Impression: LBBB (left bundle branch block) Critical Care I have personally spent greater than 35 minutes of critical care time in the direct management of this patient. This includes bedside care, interpretation of diagnostic studies, and testing, discussion with consultants, patient, and family members, and other required patient management activities. This 35 minutes is in excess of all separately billable procedures. Scribe Attestation The scribe's documentation has been prepared under my direction and personally reviewed by me in its entirety. I confirm that the note above accurately reflects all work, treatment, procedures, and medical decision making performed by me. Departure Information Dispostion Home / Self-Care Referrals No Doctor, Assigned (PCP) Jose M Esposito D.O. Rozick, Mark S., M.D. Forms Call Back Authorization, HOME CARE DOCUMENTATION FORM, IMPORTANT VISIT INFORMATION Patient Instructions ED Tachycardia Pat PSVT, My [facility] Additional Instructions Diagnosis: Left bundle branch block, SVT Please follow up with Dr Esposito this week for reevaluation. Return to the ED for worsening of symptoms or any medical concerns. Problem Qualifiers
[2017-07-05 13:05] LABS: BASO % 0.4 %; BASO ABS # 0.04 K/uL (0-0.2); COMPLETE YES; HEMATOCRIT 43.5 % (42-52); IG% 0.2 %; LYMPH % 39.5 %; LYMPH ABS # 4.13 K/uL (1.2-3.4); MEAN CORPUSCULAR HEMOGLOBIN 30.6 pg (25-34); MEAN CORPUSCULAR HGB CONC 35.2 g/dl (32-36); MEAN PLATELET VOLUME 12.8 fL (7.4-10.4); MONO % 6.8 %; NEUT % 51.1 %; PLATELET COUNT 158 K/uL (130-400); WHITE BLOOD COUNT 10.46 K/uL (4.8-10.8)
[2017-07-05] MEDS ORDERED: METO50TA16 PO (13:13)
--- NOTE | 2017-07-05 13:15 | DIAGNOSTIC IMAGING REPORT ---
CHEST ONE VIEW PORTABLE HISTORY: 62 years-old Male chest pain, SVT acute atypical chest pain COMPARISON: Chest radiograph 02/03/2017, CTA chest 12/08/2016 TECHNIQUE: Portable upright AP view of the chest FINDINGS: Cardiac mediastinal and hilar silhouettes are within normal limits. There is atherosclerosis of the aorta. Calcified granuloma of the posterior segment right upper lobe appears unchanged. No pneumothorax, pleural effusion, focal airspace consolidation or overt pulmonary edema. The bones of the chest are grossly intact. IMPRESSION: No acute cardiopulmonary process. The above report was generated using voice recognition software. It may contain grammatical, syntax or spelling errors. Electronically signed by: Devan Rosen M.D. 07/05/2017 1:13 PM Dictated Date/Time: 07/05/2017 1:12 PM
[2017-07-05 13:16] LABS: ALT/SGPT 42 U/L (12-78); BLOOD UREA NITROGEN 19 mg/dl (7-18); BUN/CREATININE RATIO 14.6 (10-20); CALCIUM 8.9 mg/dl (8.5-10.1); CARBON DIOXIDE 26 mmol/L (21-32); CHLORIDE 101 mmol/L (98-107); GLUCOSE 137 mg/dl (70-99); MAGNESIUM 2.1 mg/dl (1.8-2.4); POTASSIUM 3.5 mmol/L (3.5-5.1); SODIUM 136 mmol/L (136-145)
[2017-07-05 13:25] LABS: ALKALINE PHOSPHATASE 87 U/L (45-117); AST/SGOT 28 U/L (15-37); CKMB/CK RATIO 1.7 (0-3.0); PHOSPHORUS 2.8 mg/dl (2.5-4.9)
[2017-07-05 15:29] VITALS: BP 109/52; PULSE 72; O2SAT 98
== END 2017-07-05 15:31 | disposition home or self-care (01) ==
LOC: C.EDB 12:32
DX: I47.1 Supraventricular tachycardia (principal); I44.7 Left bundle-branch block, unspecified; E78.5 Hyperlipidemia, unspecified; E03.9 Hypothyroidism, unspecified; Z86.010 Personal history of colon polyps; Z96.642 Presence of left artificial hip joint; Z82.49 Family history of ischemic heart disease and other diseases of the circulatory system; Z83.3 Family history of diabetes mellitus; Z79.899 Other long term (current) drug therapy

== ENCOUNTER 2017-07-18 14:25 | Inpatient (IN) | payer OTHER ==
[~2017-07-18] VITALS: Ht 177.8 cm; Wt 101.3 kg
[~2017-07-18 14:25] MED LIST changes: -ACET-1175 PO; -ASPI-435 PO; -CHOL1TAB53 PO; -METO25TA56 PO; +METO50TA16 PO
[2017-07-18] MEDS ORDERED: ADENOSINE IV SOLN 3 MG/ML 2 ML VIAL ONE (14:34)
--- NOTE | 2017-07-18 14:50 | DIAGNOSTIC IMAGING REPORT ---
CHEST ONE VIEW PORTABLE CLINICAL HISTORY: Atypical chest pain and tachycardia COMPARISON STUDY: 07/05/2017 FINDINGS: The heart is upper limits of normal in size. There is no failure. There is no focal pulmonary consolidation. There are no pleural effusions. There is a calcified granuloma within the right upper lung zone.[ IMPRESSION: No active disease in the chest. Electronically signed by: Juvencio Kelly M.D. 07/18/2017 2:48 PM Dictated Date/Time: 07/18/2017 2:48 PM
[2017-07-18 14:52] LABS: BASO % 0.3 %; BASO ABS # 0.03 K/uL (0-0.2); COMPLETE YES; EOS % 2.2 %; HEMATOCRIT 46.3 % (42-52); IG% 0.3 %; LYMPH % 33.8 %; LYMPH ABS # 3.47 K/uL (1.2-3.4); MEAN CELL VOLUME 90.3 fL (80-100); MEAN CORPUSCULAR HEMOGLOBIN 29.6 pg (25-34); MEAN CORPUSCULAR HGB CONC 32.8 g/dl (32-36); MEAN PLATELET VOLUME 12.6 fL (7.4-10.4); MONO % 7.6 %; NEUT % 55.8 %; PLATELET COUNT 168 K/uL (130-400); RED BLOOD COUNT 5.13 M/uL (4.7-6.1); WHITE BLOOD COUNT 10.27 K/uL (4.8-10.8)
[2017-07-18] MEDS ORDERED: ASPI81TA28 PO (15:01)
[2017-07-18 15:03] LABS: PARTIAL THROMBOPLASTIN RATIO 1.2; PROTHROMBIN TIME (PATIENT) 10.7 SECONDS (9.0-12.0)
[2017-07-18 15:10] LABS: ALT/SGPT 42 U/L (12-78); AST/SGOT 24 U/L (15-37); BLOOD UREA NITROGEN 14 mg/dl (7-18); BUN/CREATININE RATIO 11.4 (10-20); CALCIUM 8.7 mg/dl (8.5-10.1); CARBON DIOXIDE 31 mmol/L (21-32); CHLORIDE 100 mmol/L (98-107); GLUCOSE 99 mg/dl (70-99); POTASSIUM 3.6 mmol/L (3.5-5.1); SODIUM 136 mmol/L (136-145)
--- NOTE | 2017-07-18 15:20 | EMERGENCY ROOM VISIT NOTE ---
History First contact with patient: 14:29 Chief Complaint: CHEST PAIN Stated Complaint: CHEST PAINS, RACING HEART Nursing Triage Summary: triage note: pt to triage via wheelchair. pt reports mid chest pain since 0 today. History of Present Illness The patient is a 62 year old male who presents to the Emergency Room via private vehicle with complaints of "chest pain, racing heart". The patient states that he was at home when he developed chest pain and a racing heart at 1: 30 PM. He states then he was brought here via private vehicle. He has had this before. He notes that he was seen here in mid June with the exact same symptoms and had been given adenosine. He states that he is scheduled for a cardiac catheterization next week, followed by a valve replacement at [facility]. Review of Systems A complete 10-point Review of Systems was discussed with the patient, with pertinent positives and negatives listed in the History of Present Illness. All remaining Review of Systems questions can be considered negative unless otherwise specified. 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 (2) Aortic stenosis (3) Bicuspid aortic valve (4) Cervicalgia (5) Dilated aortic root (6) Dyslipidemia (7) History of adenomatous polyp of colon (8) History of supraventricular tachycardia (9) Hypertension (10) Hypothyroidism (11) Osteoarthros Nos-Pelvis Surgical Problems: (1) Status post cardiac catheterization (2) Status post cardiac surgery (3) Status post colonoscopy (4) Status post left hip replacement (5) Status post lumbar surgery Family History Coronary artery disease FATHER Diabetes mellitus MOTHER Heart disease MOTHER Social History Smoking Status: Never Smoker Alcohol Use: occasionally Drug Use: none Marital Status: Housing Status: lives with significant other Occupation Status: disabled Current/Historical Medications Scheduled Aspirin (Aspirin Ec), 81 MG PO DAILY Cholecalciferol (Vitamin D3), 1 TAB PO DAILY Levothyroxine Sodium (Synthroid), 75 MCG PO DAILY Metoprolol Tartrate (Lopressor) (Lopressor), 75 MG PO BID Simvastatin (Zocor), 20 MG PO QPM Triamterene/Hctz (Triamterene/Hctz 37.5-25MG), 1 TAB PO DAILY Physical Exam Vital Signs Date Time Temp Pulse Resp B/P (MAP) Pulse Ox O2 Delivery O2 Flow Rate FiO2 07/18/17 15:25 86 13 96 07/18/17 15:10 85 13 100 07/18/17 15:01 115/66 07/18/17 14:56 129/75 07/18/17 14:55 92 15 99 07/18/17 14:52 97/83 07/18/17 14:46 94/77 07/18/17 14:40 152 21 96 07/18/17 14:39 95 Room Air 07/18/17 14:37 113/88 07/18/17 14:35 97 Nasal Cannula 2.0 07/18/17 14:31 145 07/18/17 14:27 36.9 91 18 106/81 96 Room Air Physical Exam VITAL SIGNS - Vital signs and nursing notes were reviewed. Stable. Once in the room he was found to be tachycardic at 144 bpm. GENERAL -62-year-old male appearing his stated age who is in no acute distress. Communicates well with provider and answers questions appropriately. SKIN - Without rashes. No petechial rashes. HEAD - NC/AT. EYES - Sclera anicteric. EARS - No deformities of external structures noted on gross examination bilaterally. NOSE - Midline and without cyanosis. No epistaxis or purulent drainage noted. MOUTH/OROPHARYNX - Without perioral cyanosis. LUNGS - Chest wall symmetric without accessory muscle use, intercostals retractions, or central cyanosis. Normal vesicular breath sounds CTA B/L. No wheezes, rales, or rhonchi appreciated. CARDIAC - RRR with S1/S2. Systolic murmur. No rubs, or gallops appreciated. EXTREMITIES - No clubbing or peripheral cyanosis. No pretibial edema present. +5 /5 strength noted in UE/LE bilaterally. NEUROLOGIC - Cranial nerves II through XII grossly intact. Sensory intact to light touch throughout. Medical Decision & Procedures ER Provider Diagnostic Interpretation: CHEST ONE VIEW PORTABLE CLINICAL HISTORY: Atypical chest pain and tachycardia COMPARISON STUDY: 07/05/2017 FINDINGS: The heart is upper limits of normal in size. There is no failure. There is no focal pulmonary consolidation. There are no pleural effusions. There is a calcified granuloma within the right upper lung zone.[ IMPRESSION: No active disease in the chest. Electronically signed by: Juvencio Kelly M.D. 07/18/2017 2:48 PM Dictated Date/Time: 07/18/2017 2:48 PM Laboratory Results 07/18/17 14:30 Red Blood Count 5.13, Mean Corpuscular Volume 90.3, Mean Corpuscular Hemoglobin 29.6, Mean Corpuscular Hemoglobin Concent 32.8, Mean Platelet Volume 12.6, Neutrophils (%) (Auto) 55.8, Lymphocytes (%) (Auto) 33.8, Monocytes (%) (Auto) 7.6, Eosinophils (%) (Auto) 2.2, Basophils (%) (Auto) 0.3, Neutrophils # (Auto) 5.73, Lymphocytes # (Auto) 3.47, Monocytes # (Auto) 0.78, Eosinophils # (Auto) 0.23, Basophils # (Auto) 0.03 07/18/17 14:30 Test 07/18/17 14:30 07/18/17 14:41 White Blood Count 10.27 K/uL (4.8-10.8) Red Blood Count 5.13 M/uL (4.7-6.1) Hemoglobin 15.2 g/dL (14.0-18.0) Hematocrit 46.3 % (42-52) Mean Corpuscular Volume 90.3 fL (80-100) Mean Corpuscular Hemoglobin 29.6 pg (25-34) Mean Corpuscular Hemoglobin Concent 32.8 g/dl (32-36) Platelet Count 168 K/uL (130-400) Mean Platelet Volume 12.6 fL (7.4-10.4) Neutrophils (%) (Auto) 55.8 % Lymphocytes (%) (Auto) 33.8 % Monocytes (%) (Auto) 7.6 % Eosinophils (%) (Auto) 2.2 % Basophils (%) (Auto) 0.3 % Neutrophils # (Auto) 5.73 K/uL (1.4-6.5) Lymphocytes # (Auto) 3.47 K/uL (1.2-3.4) Monocytes # (Auto) 0.78 K/uL (0.11-0.59) Eosinophils # (Auto) 0.23 K/uL (0-0.5) Basophils # (Auto) 0.03 K/uL (0-0.2) RDW Standard Deviation 47.0 fL (36.4-46.3) RDW Coefficient of Variation 14.3 % (11.5-14.5) Immature Granulocyte % (Auto) 0.3 % Immature Granulocyte # (Auto) 0.03 K/uL (0.00-0.02) Prothrombin Time 10.7 SECONDS (9.0-12.0) Prothromb Time International Ratio 1.0 (0.9-1.1) Activated Partial Thromboplast Time 31.3 SECONDS (21.0-31.0) Partial Thromboplastin Ratio 1.2 Anion Gap 5.0 mmol/L (3-11) Est Creatinine Clear Calc Drug Dose 74.1 ml/min Estimated GFR () 75.2 Estimated GFR (Non- 64.9 BUN/Creatinine Ratio 11.4 (10-20) Calcium Level 8.7 mg/dl (8.5-10.1) Magnesium Level 2.3 mg/dl (1.8-2.4) Total Bilirubin 0.6 mg/dl (0.2-1) Aspartate Amino Transf (AST/SGOT) 24 U/L (15-37) Alanine Aminotransferase (ALT/SGPT) 42 U/L (12-78) Alkaline Phosphatase 104 U/L (45-117) Total Creatine Kinase 93 U/L (39-308) Total Protein 9.1 gm/dl (6.4-8.2) Albumin 3.9 gm/dl (3.4-5.0) Globulin 5.2 gm/dl (2.5-4.0) Albumin/Globulin Ratio 0.8 (0.9-2) Thyroid Stimulating Hormone (TSH) 2.330 uIu/ml (0.300-4.500) Lyme Disease IgG Antibody NEG (NEG) Lyme Disease IgM Antibody NEG (NEG) Bedside Troponin I < 0.030 ng/ml (0-0.045) Medications Administered Medications (Trade) Dose Ordered Sig/Deepak Route Start Time Stop Time Status Last Admin Dose Admin Adenosine (Adenosine Iv) 18 mg STK-MED ONCE .ROUTE 07/18/17 14:34 07/18/17 14:35 DC 07/18/17 14:54 6 MG Amiodarone HCl (Cordarone Tab) 200 mg NOW STAT PO 07/18/17 16:25 07/18/17 16:27 DC 07/18/17 17:07 200 MG Medical Decision Patient was seen and evaluated as above. He presents to us today with chest pain and heart racing. He was triaged with a heart rate of 91. Upon management and to the room he was tachycardic at 155. Previous visit was extensively reviewed, he appears to have SVT/wide-complex tachycardia that is sensitive to adenosine. The attending physician was made aware, and was present which the medication. He was given 6 mg of adenosine without success. 12 mg were then pushed intravenously with return to normal sinus rhythm. Chest pain subsided. Initial troponin is negative. Repeat EKG does reveal sinus rhythm with first-degree AV block. Chest x-ray no acute process. I consult cardiology, and spoke with Dr. Velásquez. He recommended decreasing the metoprolol to 50 mg twice a day, and amiodarone 200 mg 3 times a day by mouth initiation. I started him on the first dose here. It was decided that the patient be started on metoprolol decreased/new amiodarone that inpatient management will be warranted. I then consult the hospitalist. Patient will be admitted for further evaluation and management. Please refer to further documentation regarding his stay. In evaluation treatment this patient following differential diagnoses were entertained: SVT, V. tach, MD, PE, among others. Impression Primary Impression: Wide-complex tachycardia Critical Care I have personally spent greater than 35 minutes of critical care time in the direct management of this patient. This includes bedside care, interpretation of diagnostic studies, and testing, discussion with consultants, patient, and family members, and other required patient management activities. This 35 minutes is in excess of all separately billable procedures. Departure Information Dispostion Admitted as an inpatient Condition FAIR Referrals Hudson Myers M.D. (PCP) Patient Instructions My [facility]
[2017-07-18 15:21] LABS: ALB/GLOB RATIO 0.8 (0.9-2); ALKALINE PHOSPHATASE 104 U/L (45-117); CKMB/CK RATIO 1.3 (0-3.0)
[2017-07-18 16:07] LABS: LYME DISEASE AB IGG NEG (NEG); LYME DISEASE AB IGM NEG (NEG)
[2017-07-18] MEDS ORDERED: AMIODARONE 200 MG TAB PO STA (16:25)
[2017-07-18] MEDS ORDERED: CHOL1000 PO (16:54)
[2017-07-18] MEDS ORDERED: ONDANSETRON INJ 2 MG/ML 2 ML VIAL IV PRN (17:00)
[2017-07-18] MEDS ORDERED: ACETAMINOPHEN 325 MG TAB PO PRN (17:00)
[2017-07-18 17:28] VITALS: BP 116/66; PULSE 71; TEMP 37.1; O2SAT 97; Ht 177.8 cm; Wt 101.3 kg
[2017-07-18 17:30] VITALS: BP 116/66; PULSE 71; TEMP 37.1; O2SAT 97
[2017-07-18 20:00] VITALS: O2SAT 95
--- NOTE | 2017-07-18 20:07 | EMERGENCY ROOM VISIT NOTE ---
ED Visit Note First contact with patient: 14:29 Patient was seen and initially evaluated by my PA. Occult bedside with heart rate in the 150s. It did show wide complex tachycardia. Systolic blood pressures were marginal. Systolic blood pressure did trend down into the 90s. Upon review of chart patient was previously admitted. Appears to have a history of SVT along with a bicuspid aortic valve. Patient was on pads. Upon review he previously responded to 12 mg IV of adenosine. He was initially given 6 today without success. I re-dose of 12 mg was given. He broke into a normal sinus rhythm. He did have some nonspecific ST wave changes. My PA discussed case with cardiology. He was admitted for change of medications and a further workup. I have personally spent 35 minutes of critical care time in the direct management of this patient. This includes bedside care, interpretation of diagnostic studies, and testing, discussion with consultants, patient, and family members, and other required patient management activities. This 35 minutes is in excess of all separately billable procedures.
[2017-07-18 20:14] VITALS: BP 112/55; PULSE 82; TEMP 37.1; O2SAT 95
--- NOTE | 2017-07-18 20:38 | History and Physical ---
History & Physical Date & Time of Service: Jul 18, 2017 ~ 16:30 Chief Complaint: Chest Pains, Palpitations Primary Care Physician: Hudson Myers M.D. History of Present Illness 62 year old male who presents to the ED with chest pain and palpitations. Patient was found to be in SVT and was given Adenosine 6mg with conversion to NSR. Patient has had several episodes of recurrent SVT requiring ED evaluations with Adenosine administration. Patient also has bicuspid aortic valve with severe stenosis. He is currently in the process of being evaluated for aortic valve replacement. Patient reports he was sitting at the desk on his computer when he had sudden onset of chest pressure and feeling like his heart was racing. Patient denies any radiation of the pain into his neck, jaw, or arm. No associated shortness of breath, diaphoresis, nausea, lightheadedness, dizziness , or syncopal event. Patient reports he otherwise has been feeling well. He has chronic exertional shortness of breath which is unchanged. No abdominal pain, vomiting, or diarrhea. He denies fever and chills. No urinary symptoms. In the ED, patient was in SVT and received Adenosine x 1 with conversion to NSR. He is now hemodynamically stable. Labs are unremarkable. 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 (2) Aortic stenosis Status: Chronic (3) Bicuspid aortic valve Status: Chronic (4) Cervicalgia Status: Chronic (5) Dilated aortic root Permanent Comment: noted on cath 2007 [facility] Status: Chronic (6) Dyslipidemia Status: Chronic (7) History of adenomatous polyp of colon Status: Chronic (8) History of supraventricular tachycardia Status: Chronic (9) Hypertension Status: Chronic (10) Hypothyroidism Status: Chronic (11) Osteoarthros Nos-Pelvis Status: Chronic Surgical Problems: (1) Status post cardiac catheterization Permanent Comment: [facility] [address] Dr. 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 details Status: Chronic (3) Status post colonoscopy Permanent Comment: adenomatous polyps Status: Chronic (4) Status post left hip replacement Status: Chronic (5) Status post lumbar surgery Permanent Comment: 2013 for lumbar spinal stenosis Status: Chronic Family History Coronary artery disease FATHER Diabetes mellitus MOTHER Heart disease MOTHER Social History Smoking Status: Never Smoker Alcohol Use: occasionally Marital Status: Immunizations History of Influenza Vaccine: Yes Influenza Vaccine Date: Jun 09, 2013 History of Tetanus Vaccine?: Yes Tetanus Immunization Date: Mar 16, 2008 History of Hepatitis B Vaccine: Yes Multi-Drug Resistant Organisms History of MDRO: No Allergies Coded Allergies: Penicillins (Verified Allergy, Unknown, HIVES, SOB, G I UPSET, 07/18/17) Home Medications Scheduled Aspirin (Aspirin Ec), 81 MG PO DAILY Cholecalciferol (Vitamin D3), 1 TAB PO DAILY Levothyroxine Sodium (Synthroid), 75 MCG PO DAILY Metoprolol Tartrate (Lopressor) (Lopressor), 75 MG PO BID Simvastatin (Zocor), 20 MG PO QPM Triamterene/Hctz (Triamterene/Hctz 37.5-25MG), 1 TAB PO DAILY Review of Systems ROS per HPI, all other systems reviewed and negative Physical Exam Vital Signs Date Time Temp Pulse Resp B/P (MAP) Pulse Ox O2 Delivery O2 Flow Rate FiO2 07/18/17 17:12 83 13 111/72 96 07/18/17 15:25 86 13 96 07/18/17 15:10 85 13 100 07/18/17 15:01 115/66 07/18/17 14:56 129/75 07/18/17 14:55 92 15 99 07/18/17 14:52 97/83 07/18/17 14:46 94/77 07/18/17 14:40 152 21 96 07/18/17 14:39 95 Room Air 07/18/17 14:37 113/88 07/18/17 14:35 97 Nasal Cannula 2.0 07/18/17 14:31 145 07/18/17 14:27 36.9 91 18 106/81 96 Room Air General Appearance: WD/WN, no apparent distress Head: normocephalic, atraumatic Eyes: normal inspection, EOMI, sclerae normal ENT: + pertinent finding (partially deaf; mucous membranes moist) Neck: supple, no JVD, trachea midline Respiratory/Chest: lungs clear, normal breath sounds, no respiratory distress Cardiovascular: regular rate, rhythm, normal peripheral pulses, + systolic murmur, + pertinent finding (+1 edema BLLE) Abdomen/GI: normal bowel sounds, non tender, soft, no organomegaly Extremities/Musculoskelatal: normal inspection, no calf tenderness, normal capillary refill Neurologic/Psych: no motor/sensory deficits, alert, normal mood/affect, oriented x 3 Skin: normal color, warm/dry Diagnostics Laboratory Results Results Past 24 Hours Test 07/18/17 14:30 07/18/17 14:41 07/18/17 16:56 Range/Units White Blood Count 10.27 4.8-10.8 K/uL Red Blood Count 5.13 4.7-6.1 M/uL Hemoglobin 15.2 14.0-18.0 g/dL Hematocrit 46.3 42-52 % Mean Corpuscular Volume 90.3 80-100 fL Mean Corpuscular Hemoglobin 29.6 25-34 pg Mean Corpuscular Hemoglobin Concent 32.8 32-36 g/dl Platelet Count 168 130-400 K/uL Mean Platelet Volume 12.6 7.4-10.4 fL Neutrophils (%) (Auto) 55.8 % Lymphocytes (%) (Auto) 33.8 % Monocytes (%) (Auto) 7.6 % Eosinophils (%) (Auto) 2.2 % Basophils (%) (Auto) 0.3 % Neutrophils # (Auto) 5.73 1.4-6.5 K/uL Lymphocytes # (Auto) 3.47 1.2-3.4 K/uL Monocytes # (Auto) 0.78 0.11-0.59 K/uL Eosinophils # (Auto) 0.23 0-0.5 K/uL Basophils # (Auto) 0.03 0-0.2 K/uL RDW Standard Deviation 47.0 36.4-46.3 fL RDW Coefficient of Variation 14.3 11.5-14.5 % Immature Granulocyte % (Auto) 0.3 % Immature Granulocyte # (Auto) 0.03 0.00-0.02 K/uL Prothrombin Time 10.7 9.0-12.0 SECONDS Prothromb Time International Ratio 1.0 0.9-1.1 Activated Partial Thromboplast Time 31.3 21.0-31.0 SECONDS Partial Thromboplastin Ratio 1.2 Sodium Level 136 136-145 mmol/L Potassium Level 3.6 3.5-5.1 mmol/L Chloride Level 100 98-107 mmol/L Carbon Dioxide Level 31 21-32 mmol/L Anion Gap 5.0 3-11 mmol/L Blood Urea Nitrogen 14 7-18 mg/dl Creatinine 1.20 0.60-1.40 mg/dl Est Creatinine Clear Calc Drug Dose 74.1 ml/min Estimated GFR () 75.2 Estimated GFR (Non- 64.9 BUN/Creatinine Ratio 11.4 10-20 Random Glucose 99 70-99 mg/dl Calcium Level 8.7 8.5-10.1 mg/dl Magnesium Level 2.3 1.8-2.4 mg/dl Total Bilirubin 0.6 0.2-1 mg/dl Aspartate Amino Transf (AST/SGOT) 24 15-37 U/L Alanine Aminotransferase (ALT/SGPT) 42 12-78 U/L Alkaline Phosphatase 104 45-117 U/L Total Creatine Kinase 93 39-308 U/L Creatine Kinase MB 1.2 0.5-3.6 ng/ml Creatine Kinase MB Ratio 1.3 0-3.0 Troponin I < 0.015 0-0.045 ng/ml Total Protein 9.1 6.4-8.2 gm/dl Albumin 3.9 3.4-5.0 gm/dl Globulin 5.2 2.5-4.0 gm/dl Albumin/Globulin Ratio 0.8 0.9-2 Thyroid Stimulating Hormone (TSH) 2.330 0.300-4.500 uIu/ml Lyme Disease IgG Antibody NEG NEG Lyme Disease IgM Antibody NEG NEG Bedside Troponin I < 0.030 0-0.045 ng/ml Diagnostic Radiology CXR IMPRESSION: No active disease in the chest. Impression Assessment and Plan SVT - admit to tele - patient presenting with chest pain and palpitations; found to be in SVT, s/p Adenosine x 1 with conversion to NSR - patient has had several recurrent episodes of SVT recently requiring ED evaluation and Adenosine administration - severe aortic stenosis likely contributing - case discussed with Dr. Velásuqez - will start amiodarone 200mg TID and decrease metoprolol from 75mg BID to 50mg BID SEVERE AORTIC STENOSIS - currently being evaluated for aortic valve replacement - appears euvolemic HTN - BP controlled, continue Maxzide and metoprolol HYPOTHYROIDISM - continue levothyroxine HLD - continue statin DVT PROPHYLAXIS - SQ Lovenox DISPO - In my clinical judgment this beneficiary meets acute admission criteria, established by [facility], that includes being hospitalized through two midnights. ATTENDING NOTE : in agreement with above H&P 62 yo M with hx of Congenital bicuspid Aortic valve with severe aortic stenosis presented to ER with complain of palpitation , SOB found to be in SVT , given Adenosine X1 converted to sinus with rate controlled pt is started on Amiodarone 200 mg TID and metoprolol dose reduced to 50 mg BID ( was on 75 mg BID ) had recent ECHO done at [facility] on 06/22/17 showed moderate LV hypertrophy with EF 55-59% Congenitally bicuspid Aortic valve with severely calcified aortic valve with aortic stenosis pt is scheduled on 08/01/17 with Cardiothoracic surgery at [place] for pre op assessment for Aortic valve replacement serial cardiac markers ordered due to recent ECHO study , repeat ECHO not ordered Cardiology consulted cont to monitor in Tele Siomara Shepard MD Level of Care Telemetry Resuscitation Status FULL RESUSCITATION VTE Prophylaxis VTE Risk Assessment Done? Y/N: Yes Risk Level: Moderate Given or contraindicated: Unfractionated heparin SQ Additional Copies To Hudson Tidwell PA-C Rozick, Mark S., M.D.
[2017-07-18] MEDS: ENOXAPARIN 40 MG/0.4 ML SYR SC SCH (20:43)
[2017-07-18] MEDS: METOPROLOL TARTRATE 50 MG TAB PO SCH (20:44)
[2017-07-18] MEDS: SIMVASTATIN 20 MG TAB PO SCH (20:44)
[2017-07-18] MEDS: AMIODARONE 200 MG TAB PO SCH (20:44)
[2017-07-19] VITALS (12 sets, daily range): BP systolic 103–144; BP diastolic 53–75; PULSE 61–77; TEMP 36.3–37.2; O2SAT 90–97
[2017-07-19 04:25] LABS: HEMATOCRIT 39.5 % (42-52); MEAN CELL VOLUME 89.2 fL (80-100); MEAN CORPUSCULAR HEMOGLOBIN 29.3 pg (25-34); MEAN CORPUSCULAR HGB CONC 32.9 g/dl (32-36); MEAN PLATELET VOLUME 12.3 fL (7.4-10.4); PLATELET COUNT 134 K/uL (130-400); RED BLOOD COUNT 4.43 M/uL (4.7-6.1); WHITE BLOOD COUNT 8.05 K/uL (4.8-10.8)
[2017-07-19 04:45] LABS: BLOOD UREA NITROGEN 14 mg/dl (7-18); BUN/CREATININE RATIO 12.8 (10-20); CALCIUM 8.2 mg/dl (8.5-10.1); CARBON DIOXIDE 32 mmol/L (21-32); CHLORIDE 104 mmol/L (98-107); CREATININE 1.11 mg/dl (0.60-1.40); GLUCOSE 116 mg/dl (70-99); POTASSIUM 3.4 mmol/L (3.5-5.1); SODIUM 140 mmol/L (136-145)
[2017-07-19] MEDS: LEVOTHYROXINE 75 MCG TAB PO SCH (05:53)
[2017-07-19] MEDS ORDERED: POTASSIUM CHLORIDE 20 MEQ TABCR PO ONE (08:00)
[2017-07-19] MEDS: AMIODARONE 200 MG TAB PO SCH ×3 (08:35→20:38)
[2017-07-19] MEDS: METOPROLOL TARTRATE 50 MG TAB PO SCH ×2 (08:35→20:38)
[2017-07-19] MEDS: ASPIRIN 81 MG ECTAB PO SCH (08:35)
[2017-07-19] MEDS: CHOLECALCIFEROL 1000 INTER.UNIT TAB PO SCH (08:36)
[2017-07-19] MEDS: TRIAMTERENE/HCTZ 37.5/25MG TAB PO SCH (08:36)
--- NOTE | 2017-07-19 13:38 | CARDIOLOGY CONSULTATION ---
DATE OF CONSULTATION: 07/19/2017 DATE OF CONSULTATION: 07/19/2017 REFERRING PHYSICIAN: Dr. Perez. INDICATIONS: Supraventricular tachycardia paroxysmal, underlying aortic valvular disease. HISTORY OF PRESENT ILLNESS: The patient is a 62-year-old male well known to our service. His past medical history is notable for congenitally bicuspid aortic valve with severe aortic stenosis. The patient is currently undergoing evaluation for aortic valve replacement. In addition to above, he carries a history of paroxysmal supraventricular tachycardia, hypertension, hyperlipidemia, obstructive sleep apnea and dilated aortic root, hypothyroidism. The patient presents this admission once again having lapsed into supraventricular tachycardia. He has had multiple presentations in the last 6 months with similar complaints. He presented to the ER once again with chest pressure, shortness of breath, and tachypalpitations. Telemetry demonstrating supraventricular tachycardia, rate 145-150. He is referred after successful conversion with adenosine for inpatient management initiation of amiodarone therapy. This morning, the patient feels well. Notes no chest pain, shortness of breath, orthopnea. Notes no worsening peripheral edema. Notes no tachypalpitations. Notes no dizziness or lightheadedness. He has been ambulatory in the hallway without complaint. ALLERGIES: PENICILLIN. MEDICATIONS: Prior to hospitalization were aspirin 81 mg per day, cholecalciferol 1000 units daily, levothyroxine 75 mcg per day, metoprolol 75 mg p.o. b.i.d., Zocor 20 grams p.o. daily, triamterene/hydrochlorothiazide 37/25 every day. PAST SURGICAL HISTORY: Notable for prior left hip replacement and lumbar back surgery. 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 FAMILY HISTORY: Positive for coronary disease in father and mother. SOCIAL HISTORY: The patient is a nonsmoker. He is generally activity. He uses no significant alcoholic beverages. PHYSICAL EXAMINATION: GENERAL: The patient is currently in no acute distress. VITAL SIGNS: Heart rate 77, blood pressure is 143/74. HEAD, EYES, EARS, NOSE, AND THROAT: Normocephalic, atraumatic. Nares without discharge. Throat was clear. NECK: Supple. There is no thyromegaly. No carotid bruits. LUNGS: Clear to auscultation. CARDIOVASCULAR: Regular with a grade 3/6 systolic murmur heard best at the right upper sternal border. There is no audible diastolic murmur. ABDOMEN: Soft, mildly obese, nontender. EXTREMITIES: Without cyanosis or clubbing. There is no peripheral edema. NEUROLOGIC: The patient is alert, answering questions appropriately. DATA: Echocardiogram last performed on 06/22/2017 demonstrated preserved LV systolic function, EF 55-60% with moderate left ventricular hypertrophy. The aortic valve was congenitally bicuspid and severely calcified with restricted leaflet mobility, peak aortic valve velocities were 4.3 m/sec. Calculated aortic valve area of 0.5 cm2. There is mild aortic root enlargement measuring 4.1 cm. EKG on presentation demonstrated a wide complex tachycardia consistent with patient's past history, rate 150. EKG this morning after initiation of antiarrhythmic therapy reveals sinus rhythm with nonspecific interventricular conduction delay, borderline first degree AV block, rate 62. QT corrected at 466. LABORATORY STUDIES: White cell count is 8, hemoglobin is 13.0. Sodium is 140, potassium is 3.4, chloride is 104, bicarb 32, BUN is 14, creatinine is 1.1. IMPRESSION: Complex 62-year-old male with history of past supraventricular tachycardia with ER presentations in June, May, January and November of this past year as well as current presentation now begun on antiarrhythmic therapy. She has underlying history of bicuspid aortic valve with severe aortic stenosis with anticipation of aortic valve replacement in the upcoming near future. He is already scheduled for diagnostic cardiac catheterization next week. PLAN: The patient is asymptomatic currently. He has no signs of acute ischemia. Rhythms remain well controlled on current regimen. We will continue amiodarone dosing with anticipation following on telemetry at least another 24 hours. If clinically stable, discharge to home with planned cardiac catheterization as already scheduled. The patient is agreeable to plan. Will follow patient in the hospital.
--- NOTE | 2017-07-19 15:29 | Progress Note ---
Internal Med Progress Note Date of Service: Jul 19, 2017. Provider Documentation: SUBJECTIVE: patient sitting at bedside, comfortable, heart rate on telemetry around 70 beats per minute and generally regular rate OBJECTIVE: General Appearance: WD/WN, no apparent distress Head: normocephalic, atraumatic Eyes: normal inspection, EOMI ENT: partially deaf Neck: no JVD, trachea midline Respiratory/Chest: lungs clear, normal breath sounds, no respiratory distress Cardiovascular: regular rate, rhythm, normal peripheral pulses, + systolic murmur Abdomen/GI: normal bowel sounds, non tender, soft, no organomegaly Extremities/Musculoskelatal: normal inspection, no calf tenderness, normal capillary refill Neurologic/Psych: no motor/sensory deficits, alert, normal mood/affect, oriented x 3 Skin: normal color, warm/dry ASSESSMENT & PLAN: 62 yo M with hx of Congenital bicuspid Aortic valve with severe aortic stenosis presented to ER on 07/18/17 with complaints of palpitation , SOB found to be in SVT , given Adenosine X1 converted to sinus with rate controlled pt is started on Amiodarone 200 mg TID and metoprolol dose reduced to 50 mg BID ( was on 75 mg BID ) as per cardiology note on 07/19/17: will continue amiodarone dosing with anticipation following on telemetry at least another 24 hours. If clinically stable, discharge to home with planned cardiac catheterization as already scheduled. SVT heart rate now controlled with amiodarone and metoprolol, continue SEVERE AORTIC STENOSIS also the patient has a scheduled appointment on 08/01/17 with Cardiothoracic surgery at [place] for pre op assessment for Aortic valve replacement HTN - BP controlled, continue Maxzide and metoprolol HYPOTHYROIDISM - continue levothyroxine HLD - continue statin DVT PROPHYLAXIS - SQ Lovenox Vital Signs: Date Time Temp Pulse Resp B/P (MAP) Pulse Ox O2 Delivery O2 Flow Rate FiO2 07/19/17 12:00 96 Room Air 07/19/17 11:06 37.0 77 20 143/74 (97) 96 Room Air 77 07/19/17 08:01 37.2 70 16 119/66 (83) 94 Room Air 07/19/17 08:00 96 Room Air 07/19/17 04:01 37.1 71 18 119/72 (88) 96 Room Air 71 07/19/17 04:00 96 Room Air 07/19/17 00:11 37.2 67 18 103/60 (74) 97 67 07/19/17 00:01 97 Room Air 07/18/17 20:14 37.1 82 20 112/55 (74) 95 Room Air 07/18/17 20:00 95 Room Air 07/18/17 17:30 37.1 71 18 116/66 (83) 97 Room Air 07/18/17 17:28 37.1 71 18 116/66 97 Room Air 07/18/17 17:12 83 13 111/72 96 Lab Results: Results Past 24 Hours Test 07/18/17 16:56 07/18/17 21:57 07/19/17 04:00 07/19/17 04:12 Range/Units Troponin I < 0.015 < 0.015 < 0.015 0-0.045 ng/ml Creatine Kinase MB 1.1 0.9 0.5-3.6 ng/ml Creatine Kinase MB Ratio 0-3.0 White Blood Count 8.05 4.8-10.8 K/uL Red Blood Count 4.43 4.7-6.1 M/uL Hemoglobin 13.0 14.0-18.0 g/dL Hematocrit 39.5 42-52 % Mean Corpuscular Volume 89.2 80-100 fL Mean Corpuscular Hemoglobin 29.3 25-34 pg Mean Corpuscular Hemoglobin Concent 32.9 32-36 g/dl RDW Standard Deviation 46.5 36.4-46.3 fL RDW Coefficient of Variation 14.1 11.5-14.5 % Platelet Count 134 130-400 K/uL Mean Platelet Volume 12.3 7.4-10.4 fL Sodium Level 140 136-145 mmol/L Potassium Level 3.4 3.5-5.1 mmol/L Chloride Level 104 98-107 mmol/L Carbon Dioxide Level 32 21-32 mmol/L Anion Gap 4.0 3-11 mmol/L Blood Urea Nitrogen 14 7-18 mg/dl Creatinine 1.11 0.60-1.40 mg/dl Est Creatinine Clear Calc Drug Dose 84.8 ml/min Estimated GFR () 82.6 Estimated GFR (Non- 71.3 BUN/Creatinine Ratio 12.8 10-20 Random Glucose 116 70-99 mg/dl Calcium Level 8.2 8.5-10.1 mg/dl Magnesium Level 2.0 1.8-2.4 mg/dl
[2017-07-19] MEDS: ENOXAPARIN 40 MG/0.4 ML SYR SC SCH (17:47)
[2017-07-19] MEDS: SIMVASTATIN 20 MG TAB PO SCH (20:39)
[2017-07-20] VITALS (7 sets, daily range): BP systolic 100–117; BP diastolic 59–68; PULSE 54–66; TEMP 36.4–37; O2SAT 93–97
[2017-07-20] MEDS: LEVOTHYROXINE 75 MCG TAB PO SCH (05:45)
[2017-07-20] MEDS: AMIODARONE 200 MG TAB PO SCH (07:58)
[2017-07-20] MEDS: CHOLECALCIFEROL 1000 INTER.UNIT TAB PO SCH (07:59)
[2017-07-20] MEDS: ASPIRIN 81 MG ECTAB PO SCH (07:59)
[2017-07-20] MEDS: TRIAMTERENE/HCTZ 37.5/25MG TAB PO SCH (08:00)
[2017-07-20] MEDS: METOPROLOL TARTRATE 50 MG TAB PO SCH (08:01)
[2017-07-20 08:04] LABS: ALB/GLOB RATIO 0.7 (0.9-2); BUN/CREATININE RATIO 14.5 (10-20); CALCIUM 8.9 mg/dl (8.5-10.1); CREATININE 1.25 mg/dl (0.60-1.40); POTASSIUM 3.6 mmol/L (3.5-5.1)
--- NOTE | 2017-07-20 09:48 | PROGRESS NOTE ---
DATE: 07/20/2017 The patient seen and examined. Chart, medications, telemetry reviewed. SUBJECTIVE: The patient feels well, he is ambulatory in the room and hallway. Denies any chest pain or worsening shortness of breath. Notes no fevers, chills or cough. Telemetry reveals no further arrhythmias. Appetite has been good. He is anxious to be discharged to home. OBJECTIVE: VITAL SIGNS: Heart rate is 65, blood pressure is 110/68. HEENT: Normocephalic, atraumatic. Nares without discharge. Throat was clear. NECK: Supple without thyromegaly, lymphadenopathy, JVD. LUNGS: Clear to auscultation. CARDIOVASCULAR: Regular with harsh grade 3/6 systolic murmur at the right upper sternal border. There is no diastolic murmur. ABDOMEN: Soft, nontender. EXTREMITIES: Reveal 1+ lower extremity edema. LABORATORY DATA Telemetry reveals no arrhythmias. EKG reveals sinus rhythm at a rate of 64. QT corrected of 466. LABORATORY STUDIES: Sodium is 137, potassium is 3.6, chloride is 103, bicarb is 29, BUN is 18, creatinine is 1.25. IMPRESSION: A 62-year-old male, issues as follows: 1. Paroxysmal wide complex tachycardia, possible supraventricular tachycardia versus adenosine response to ventricular tachycardia, now on appropriate therapies as tolerated, amiodarone dosing, QTS had no prolongation. He has had no further arrhythmias. 2. Severe calcific aortic stenosis superimposed on bicuspid aortic valve. 3. Hyperlipidemia, on therapy. 4. Hypokalemia. RECOMMENDATIONS: The patient will be allowed to ambulate in the hallway this morning and discharged to home later this afternoon on current dosing of amiodarone 200 mg 3 times per day and metoprolol at reduced dose 50 mg twice per day. Potassium will be supplemented this morning and the patient should be discharged on potassium tablet 10 mEq daily. We will anticipate followup as already scheduled for diagnostic cardiac catheterization Sunday, next week and planned follow up with cardiovascular surgery later the same week. Stressed the importance of aborting all strenuous activity and reporting promptly if any further arrhythmias, tachypalpitations or symptoms in the interim. The patient is agreeable to plan.
[2017-07-20] MEDS ORDERED: POTASSIUM CHLORIDE 10 MEQ TABCR PO ONE (10:00)
[2017-07-20] MEDS ORDERED: POTASSIUM CHLORIDE 20 MEQ TABCR PO STA (10:08)
[2017-07-20] MEDS ORDERED: CRD200 PO (11:17)
[2017-07-20] MEDS ORDERED: METO50TA16 PO (11:17)
[2017-07-20] MEDS ORDERED: POTA10CA28 PO (11:17)
--- NOTE | 2017-07-20 11:30 | Progress Note ---
Internal Med Progress Note Date of Service: Jul 20, 2017. Provider Documentation: SUBJECTIVE: patient sitting at bedside, comfortable, heart rate on telemetry regular, no acute complaints OBJECTIVE: General Appearance: WD/WN, no apparent distress Head: normocephalic, atraumatic Eyes: normal inspection, EOMI ENT: partially deaf Neck: no JVD, trachea midline Respiratory/Chest: lungs clear, normal breath sounds, no respiratory distress Cardiovascular: regular rate, rhythm, normal peripheral pulses, + systolic murmur Abdomen/GI: normal bowel sounds, non tender, soft, no organomegaly Extremities/Musculoskelatal: normal inspection, no calf tenderness, normal capillary refill Neurologic/Psych: no motor/sensory deficits, alert, normal mood/affect, oriented x 3 Skin: normal color, warm/dry ASSESSMENT & PLAN: 62 yo M with hx of Congenital bicuspid Aortic valve with severe aortic stenosis presented to ER on 07/18/17 with complaints of palpitation , SOB found to be in SVT , given Adenosine X1 converted to sinus with rate controlled pt is started on Amiodarone 200 mg TID and metoprolol dose reduced to 50 mg BID ( was on 75 mg BID). Patient was also evaluated by cardiology service SVT heart rate now controlled with amiodarone and metoprolol, continue amiodarone 200 mg 3 times per day, metoprolol at reduced dose 50 mg twice per day SEVERE AORTIC STENOSIS also the patient has a scheduled appointment on 08/01/17 with Cardiothoracic surgery at [place] HTN - BP controlled, continue Maxzide and metoprolol HYPOTHYROIDISM - continue levothyroxine HLD - continue statin Hypokalemia - received potassium supplements in the hospital and to be discharged with prescription for potassium tablet 10 mEq daily Disposition discharge to home follow up appointments: as per cardiology Dr. Yosi Leigh, patient has scheduled diagnostic cardiac catheterization Sunday07/24/2017 07/25/2017 11:00 AM Hudson Myers MD [facility] 08/01/2017 8:45 AM Gideon Talbert MD Cardiothoracic Surg [facility] new changes to medication list: addition of amiodarone 200 mg 3 times per day, metoprolol at reduced dose 50 mg twice per day, potassium tablet 10 mEq daily Vital Signs: Date Time Temp Pulse Resp B/P (MAP) Pulse Ox O2 Delivery O2 Flow Rate FiO2 07/20/17 08:00 96 Room Air 07/20/17 07:50 36.4 65 16 110/68 (82) 96 07/20/17 04:17 37.0 61 18 115/66 (82) 93 Room Air 07/20/17 04:00 Room Air 07/20/17 00:23 37.0 66 19 100/63 (75) 93 Room Air 07/20/17 00:00 Room Air 07/19/17 20:36 37.0 68 16 110/68 (82) 97 Room Air 07/19/17 20:00 Room Air 07/19/17 19:51 37.0 69 20 144/75 (98) 95 Room Air 07/19/17 17:01 36.8 61 20 109/53 (71) 90 Room Air 07/19/17 16:00 96 Room Air 07/19/17 12:00 96 Room Air Lab Results: Results Past 24 Hours Test 07/20/17 07:29 07/20/17 07:32 Range/Units Magnesium Level 2.3 1.8-2.4 mg/dl Sodium Level 137 136-145 mmol/L Potassium Level 3.6 3.5-5.1 mmol/L Chloride Level 103 98-107 mmol/L Carbon Dioxide Level 29 21-32 mmol/L Anion Gap 5.0 3-11 mmol/L Blood Urea Nitrogen 18 7-18 mg/dl Creatinine 1.25 0.60-1.40 mg/dl Est Creatinine Clear Calc Drug Dose 74.0 ml/min Estimated GFR () 71.6 Estimated GFR (Non- 61.8 BUN/Creatinine Ratio 14.5 10-20 Random Glucose 134 70-99 mg/dl Calcium Level 8.9 8.5-10.1 mg/dl Total Bilirubin 0.7 0.2-1 mg/dl Aspartate Amino Transf (AST/SGOT) 23 15-37 U/L Alanine Aminotransferase (ALT/SGPT) 34 12-78 U/L Alkaline Phosphatase 98 45-117 U/L Total Protein 8.6 6.4-8.2 gm/dl Albumin 3.6 3.4-5.0 gm/dl Globulin 5.0 2.5-4.0 gm/dl Albumin/Globulin Ratio 0.7 0.9-2
--- NOTE | 2017-07-20 11:33 | Discharge Instructions ---
Discharge Instructions Date of Service Jul 20, 2017. Admission Reason for Admission: SVT Discharge Discharge Diagnosis / Problem: Paroxysmal wide complex tachycardia (SVT), hypokalemia, aortic stenosis Discharge Goals Goal(s): Decrease discomfort, Improve function Activity Recommendations Activity Limitations: per Instructions/Follow-up section Shower/Bathe: no limitations . Instructions / Follow-Up Instructions / Follow-Up 62 yo M with hx of Congenital bicuspid Aortic valve with severe aortic stenosis presented to ER on 07/18/17 with complaints of palpitation , SOB found to be in SVT , given Adenosine X1 converted to sinus with rate controlled pt is started on Amiodarone 200 mg TID and metoprolol dose reduced to 50 mg BID ( was on 75 mg BID). Patient was also evaluated by cardiology service SVT heart rate now controlled with amiodarone and metoprolol, continue amiodarone 200 mg 3 times per day, metoprolol at reduced dose 50 mg twice per day SEVERE AORTIC STENOSIS also the patient has a scheduled appointment on 08/01/17 with Cardiothoracic surgery at [place] HTN - BP controlled, continue Maxzide and metoprolol HYPOTHYROIDISM - continue levothyroxine HLD - continue statin Hypokalemia - received potassium supplements in the hospital and to be discharged with prescription for potassium tablet 10 mEq daily Disposition discharge to home follow up appointments: as per cardiology Dr. Yosi Leigh, patient has scheduled diagnostic cardiac catheterization Sunday07/24/2017 07/25/2017 11:00 AM Hudson Myers MD [facility] 08/01/2017 8:45 AM Gideon Talbert MD [facility] new changes to medication list: addition of amiodarone 200 mg 3 times per day, metoprolol at reduced dose 50 mg twice per day, potassium tablet 10 mEq daily Current Hospital Diet Patient's current hospital diet: AHA Diet (Heart Healthy) Discharge Diet Recommended Diet: AHA Diet (Heart Healthy) Pending Studies Studies pending at discharge: no Laboratory Results 07/19/17 04:12 07/20/17 07:32 Test 07/18/17 14:30 07/18/17 14:41 07/19/17 04:00 07/19/17 04:12 Immature Granulocyte % (Auto) 0.3 % White Blood Count 10.27 K/uL (4.8-10.8) Red Blood Count 5.13 M/uL (4.7-6.1) 4.43 M/uL (4.7-6.1) Hemoglobin 15.2 g/dL (14.0-18.0) Hematocrit 46.3 % (42-52) Mean Corpuscular Volume 90.3 fL (80-100) 89.2 fL (80-100) Mean Corpuscular Hemoglobin 29.6 pg (25-34) 29.3 pg (25-34) Mean Corpuscular Hemoglobin Concent 32.8 g/dl (32-36) 32.9 g/dl (32-36) Platelet Count 168 K/uL (130-400) Mean Platelet Volume 12.6 fL (7.4-10.4) 12.3 fL (7.4-10.4) Neutrophils (%) (Auto) 55.8 % Lymphocytes (%) (Auto) 33.8 % Monocytes (%) (Auto) 7.6 % Eosinophils (%) (Auto) 2.2 % Basophils (%) (Auto) 0.3 % Neutrophils # (Auto) 5.73 K/uL (1.4-6.5) Lymphocytes # (Auto) 3.47 K/uL (1.2-3.4) Monocytes # (Auto) 0.78 K/uL (0.11-0.59) Eosinophils # (Auto) 0.23 K/uL (0-0.5) Basophils # (Auto) 0.03 K/uL (0-0.2) Immature Granulocyte # (Auto) 0.03 K/uL (0.00-0.02) Prothrombin Time 10.7 SECONDS (9.0-12.0) Prothromb Time International Ratio 1.0 (0.9-1.1) Activated Partial Thromboplast Time 31.3 SECONDS (21.0-31.0) Partial Thromboplastin Ratio 1.2 Total Creatine Kinase 93 U/L (39-308) Thyroid Stimulating Hormone (TSH) 2.330 uIu/ml (0.300-4.500) Lyme Disease IgG Antibody NEG (NEG) Lyme Disease IgM Antibody NEG (NEG) Bedside Troponin I < 0.030 ng/ml (0-0.045) Creatine Kinase MB Ratio (0-3.0) RDW Standard Deviation 46.5 fL (36.4-46.3) RDW Coefficient of Variation 14.1 % (11.5-14.5) Creatine Kinase MB 0.9 ng/ml (0.5-3.6) Troponin I < 0.015 ng/ml (0-0.045) Test 07/20/17 07:29 07/20/17 07:32 Magnesium Level 2.3 mg/dl (1.8-2.4) Anion Gap 5.0 mmol/L (3-11) Est Creatinine Clear Calc Drug Dose 74.0 ml/min Estimated GFR () 71.6 Estimated GFR (Non- 61.8 BUN/Creatinine Ratio 14.5 (10-20) Calcium Level 8.9 mg/dl (8.5-10.1) Total Bilirubin 0.7 mg/dl (0.2-1) Aspartate Amino Transf (AST/SGOT) 23 U/L (15-37) Alanine Aminotransferase (ALT/SGPT) 34 U/L (12-78) Alkaline Phosphatase 98 U/L (45-117) Total Protein 8.6 gm/dl (6.4-8.2) Albumin 3.6 gm/dl (3.4-5.0) Globulin 5.0 gm/dl (2.5-4.0) Albumin/Globulin Ratio 0.7 (0.9-2) Medical Emergencies . Who to Call and When: Medical Emergencies: If at any time you feel your situation is an emergency, please call 911 immediately. . Non-Emergent Contact Non-Emergency issues call your: Primary Care Provider, [facility] Call Non-Emergent contact if: you have any medication questions . . "Provider Documentation" section prepared by Martin Perez. . VTE Core Measure Inpt VTE Proph given/why not?: Unfractionated heparin SQ
--- NOTE | 2017-07-20 11:36 | Discharge Summary ---
Discharge Summary Date of Service Jul 20, 2017. Discharge Summary Admission Date: Jul 18, 2017 at 16:53 Discharge Date: Jul 20, 2017 Discharge Disposition: Home Principal Diagnosis: 1. Paroxysmal wide complex tachycardia, possible supraventricular tachycardia versus adenosine response to ventricular tachycardia, now on appropriate therapies as tolerated, amiodarone dosing, QTS had no prolongation. He has had no further arrhythmias. 2. Severe calcific aortic stenosis superimposed on bicuspid aortic valve. 3. Hyperlipidemia, on therapy. 4. Hypokalemia. Consultations: cardiology Medication Reconciliation New Medications: Amiodarone HCl (Amiodarone HCl) 200 Mg Tab 200 MG PO TID for 30 Days, #90 TAB Metoprolol Tartrate (Lopressor) (Lopressor) 50 Mg Tab 50 MG PO BID for 30 Days, #60 TAB Potassium Chloride (Micro-K Ext Rel) 10 Meq Capcr 10 MEQ PO DAILY for 30 Days, #30 Continued Medications: Aspirin (Aspirin Ec) 81 Mg Tab 81 MG PO DAILY Cholecalciferol (Vitamin D3) 1,000 Unit Tab 1 TAB PO DAILY for 30 Days, #30 TAB 5 Refills Levothyroxine Sodium (Synthroid) 75 Mcg Tab 75 MCG PO DAILY, TAB Simvastatin (Zocor) 20 Mg Tab 20 MG PO QPM, TAB Triamterene/Hctz (Triamterene/Hctz 37.5-25MG) 1 Tab Tab 1 TAB PO DAILY, TAB 1 Refill Discontinued Medications: Metoprolol Tartrate (Lopressor) (Lopressor) 50 Mg Tab 75 MG PO BID, TAB Admission Information HPI (per Admitting provider): 62 year old male who presents to the ED with chest pain and palpitations. Patient was found to be in SVT and was given Adenosine 6mg with conversion to NSR. Patient has had several episodes of recurrent SVT requiring ED evaluations with Adenosine administration. Patient also has bicuspid aortic valve with severe stenosis. He is currently in the process of being evaluated for aortic valve replacement. Patient reports he was sitting at the desk on his computer when he had sudden onset of chest pressure and feeling like his heart was racing. Patient denies any radiation of the pain into his neck, jaw, or arm. No associated shortness of breath, diaphoresis, nausea, lightheadedness, dizziness , or syncopal event. Patient reports he otherwise has been feeling well. He has chronic exertional shortness of breath which is unchanged. No abdominal pain, vomiting, or diarrhea. He denies fever and chills. No urinary symptoms. In the ED, patient was in SVT and received Adenosine x 1 with conversion to NSR. He is now hemodynamically stable. Labs are unremarkable. Physical Exam (per Admitting): General Appearance: WD/WN, no apparent distress Head: normocephalic, atraumatic Eyes: normal inspection, EOMI, sclerae normal ENT: + pertinent finding (partially deaf; mucous membranes moist) Neck: supple, no JVD, trachea midline Respiratory/Chest: lungs clear, normal breath sounds, no respiratory distress Cardiovascular: regular rate, rhythm, normal peripheral pulses, + systolic murmur, + pertinent finding (+1 edema BLLE) Abdomen/GI: normal bowel sounds, non tender, soft, no organomegaly Extremities/Musculoskelatal: normal inspection, no calf tenderness, normal capillary refill Neurologic/Psych: no motor/sensory deficits, alert, normal mood/affect, oriented x 3 Skin: normal color, warm/dry Hospital Course 62 yo M with hx of Congenital bicuspid Aortic valve with severe aortic stenosis presented to ER on 07/18/17 with complaints of palpitation , SOB found to be in SVT , given Adenosine X1 converted to sinus with rate controlled pt is started on Amiodarone 200 mg TID and metoprolol dose reduced to 50 mg BID ( was on 75 mg BID). Patient was also evaluated by cardiology service SVT heart rate now controlled with amiodarone and metoprolol, continue amiodarone 200 mg 3 times per day, metoprolol at reduced dose 50 mg twice per day SEVERE AORTIC STENOSIS also the patient has a scheduled appointment on 08/01/17 with Cardiothoracic surgery at [place] HTN - BP controlled, continue Maxzide and metoprolol HYPOTHYROIDISM - continue levothyroxine HLD - continue statin Hypokalemia - received potassium supplements in the hospital and to be discharged with prescription for potassium tablet 10 mEq daily Disposition discharge to home follow up appointments: as per cardiology Dr. Yosi Leigh, patient has scheduled diagnostic cardiac catheterization Sunday07/24/2017 07/25/2017 11:00 AM Hudson Myers MD [facility] 08/01/2017 8:45 AM Gideon Talbert MD Cardiothoracic Surg [facility] new changes to medication list: addition of amiodarone 200 mg 3 times per day, metoprolol at reduced dose 50 mg twice per day, potassium tablet 10 mEq daily Total time spent on discharge = 60 minutes This includes examination of the patient, discharge planning, medication reconciliation, and communication with other providers. Discharge Instructions see above
[2017-07-21] MEDS ORDERED: POTASSIUM CHLORIDE 10 MEQ TABCR PO SCH (09:00)
[2017-07-24] MEDS ORDERED: TRIATAB3 PO (06:56)
[2017-07-24] MEDS ORDERED: METO50TA16 PO (06:56)
[2017-07-24] MEDS ORDERED: IBUP-1450 PO (06:57)
[2017-07-24] MEDS ORDERED: BRIM1GEL (06:57)
[2017-07-24] MEDS ORDERED: AMIO200T4 PO (07:10)
== END 2017-07-20 13:04 | disposition home or self-care (01) | DRG 309 ==
LOC: C.EDB 14:26 → C.2E 16:53 → ENRESERV 17:00
PROVIDERS: ADMIT Hospitalist; ATTEND Hospitalist
DX: I47.1 Supraventricular tachycardia (principal); Q23.1 Congenital insufficiency of aortic valve; I70.0 Atherosclerosis of aorta; E87.6 Hypokalemia; R06.02 Shortness of breath; I10 Essential (primary) hypertension; E03.9 Hypothyroidism, unspecified; E78.5 Hyperlipidemia, unspecified; G47.33 Obstructive sleep apnea (adult) (pediatric); Z96.642 Presence of left artificial hip joint; Z79.82 Long term (current) use of aspirin; Z79.899 Other long term (current) drug therapy

== ENCOUNTER 2017-09-03 18:17 | Emergency (ER) | payer OTHER ==
[~2017-09-03] VITALS: Ht 175.3 cm; Wt 101.0 kg
[~2017-09-03 18:17] MED LIST changes: +AMIO200T4 PO; +ASPI81TA28 PO; +BRIM1GEL; +CHOL1000 PO
[2017-09-03 18:19] VITALS: TEMP 36.5; Ht 175.3 cm; Wt 101.0 kg
[2017-09-03] MEDS ORDERED: SODIUM CHLORIDE 0.9% 250ML 250 ML IV STA (18:30)
[2017-09-03] MEDS ORDERED: SODIUM CHLORIDE 0.9% 1000ML 1,000 ML IV STA (18:30)
[2017-09-03] MEDS ORDERED: ONDANSETRON INJ 2 MG/ML 2 ML VIAL IV STA (18:30)
[2017-09-03] MEDS ORDERED: OPTIRAY 320 IV PRN (18:45)
[2017-09-03] MEDS ORDERED: METO25TA56 PO (19:19)
[2017-09-03] MEDS ORDERED: LSX20 (19:19)
[2017-09-03 19:26] LABS: BASO % 0.2 %; BASO ABS # 0.02 K/uL (0-0.2); COMPLETE YES; EOS % 0.7 %; HEMATOCRIT 38.9 % (42-52); IG% 0.3 %; LYMPH % 17.9 %; LYMPH ABS # 1.85 K/uL (1.2-3.4); MEAN CELL VOLUME 91.1 fL (80-100); MEAN CORPUSCULAR HGB CONC 31.9 g/dl (32-36); MEAN PLATELET VOLUME 11.4 fL (7.4-10.4); MONO % 6.5 %; NEUT % 74.4 %; PLATELET COUNT 319 K/uL (130-400); RED BLOOD COUNT 4.27 M/uL (4.7-6.1); WHITE BLOOD COUNT 10.33 K/uL (4.8-10.8)
[2017-09-03 19:45] LABS: URINE APPEARANCE CLEAR (CLEAR); URINE BILIRUBIN NEG (NEG); URINE COLOR YELLOW; URINE NITRITE NEG (NEG); URINE PH 7.5 (4.5-7.5); URINE SPECIFIC GRAVITY 1.017 (1.000-1.030); UROBILINOGEN POS (NEG); ZZUR CULT IF INDIC CLEAN CATCH NO
[2017-09-03 20:05] LABS: BUN/CREATININE RATIO 7.8 (10-20); CALCIUM 9.1 mg/dl (8.5-10.1); CREATININE 1.49 mg/dl (0.60-1.40); MAGNESIUM 2.2 mg/dl (1.8-2.4); POTASSIUM 3.4 mmol/L (3.5-5.1)
[2017-09-03 20:06] LABS: MANUAL MICROSCOPIC REQUIRED? NO; REVIEW REQ? NO
[2017-09-03 20:08] LABS: CKMB/CK RATIO 1.5 (0-3.0)
--- NOTE | 2017-09-03 21:08 | DIAGNOSTIC IMAGING REPORT ---
CT OF THE ABDOMEN AND PELVIS WITH CONTRAST CLINICAL HISTORY: Left lower quadrant abdominal pain. Constipation. Recent cardiac valve. COMPARISON STUDY: CT of the abdomen and pelvis February 08, 2014. TECHNIQUE: Following IV administration of 118 mL of [id number], axial images of the abdomen and pelvis were obtained from the lung bases to the proximal femurs. Images were reviewed in the axial, sagittal, and coronal planes. IV contrast was administered without complication. A dose lowering technique was utilized adhering to the principles of ALARA. CT DOSE: 999.94 mGy.cm FINDINGS: Visualized portions of the lower chest demonstrate small right and [id number] left pleural effusions. A small pericardial effusion is partially imaged with mild pericardial enhancement. A small amount of fluid within the right anterior epicardial fat is likely postprocedural. A subcentimeter left hepatic lobe cyst is noted. The spleen, right adrenal gland and pancreas are unremarkable. An 8 mm left adrenal nodule is unchanged and CT of February 08, 2014. This is benign given stability. Layering hyperdense material within gallbladder could reflect stones or sludge. There is mild gallbladder distention without pericholecystic infiltration. There is an indeterminate 2.3 cm lesion arising from the lower pole of the left kidney. This measures greater than water attenuation. There may be slight complexity of the posterior aspect of this lesion. A few additional left renal lesions likely reflect cysts. There is no hydronephrosis. There is colonic diverticulosis without evidence for acute diverticulitis. Prostate is mildly enlarged. Left hip arthroplasty is noted. There are no suspicious osseous lesions. There is no lymphadenopathy. IMPRESSION: 1. No acute process within the abdomen or pelvis. 2. No bowel obstruction. Unremarkable amount of stool within the colon and rectum. 3. Indeterminate 2.3 cm left renal lesion. This could reflect a hyperdense cyst or solid renal lesion. Nonemergent renal protocol MRI is recommended. 4. Small pericardial effusion. 5. Small to moderate left and small right pleural effusions with associated atelectasis. 6. Layering hyperdense material within the gallbladder which could reflect gallstones or sludge. No pericholecystic infiltration. Electronically signed by: Tye Arnold M.D. 09/03/2017 9:07 PM Dictated Date/Time: 09/03/2017 8:55 PM
[2017-09-03] MEDS ORDERED: FUROSEMIDE 40 MG/4 ML VIAL IV STA ×2 (21:12→21:18)
[2017-09-03 21:14] VITALS: BP 109/59; PULSE 67; O2SAT 97
[2017-09-03] MEDS ORDERED: ONDA4TAB10 SL (21:31)
[2017-09-03] MEDS ORDERED: FAMO20TA11 PO (21:31)
[2017-09-03] MEDS ORDERED: ONDANSETRON HOME PACK 4MG OD TAB PO ONE (21:45)
--- NOTE | 2017-09-04 00:58 | EMERGENCY ROOM VISIT NOTE ---
History Report prepared by Luis: Jocelyn Resendiz Under the Supervision of: Dr. Stacia Donald M.D. First contact with patient: 18:22 Chief Complaint: CONSTIPATION Stated Complaint: CONSTIPATION AFTER HEART VALUE PUT IN 2WKS AGO History of Present Illness The patient is a 62 year old male who presents to the Emergency Room with complaints of persistent nausea that began 2 weeks ago. The patient states that he had open heart surgery to replace his aortic valve. Since the surgery, the patient has been experiencing abdominal pain, bloating, some diarrhea, and loss of appetite. The patient denies any vomiting, fever, or melena. He states his bowel movements have not been normal, noting his last bowel movement was yesterday. The patient's sister states the patient has some edema on his legs and ankles, noting his doctor told them it was due to high amount of fluid to his lower extremities. The patient denies any history of diabetes or any other kidney problems. Source of History: patient, sibling (sister) Onset: 2 weeks ago Position: other (global) Quality: other (nausea) Timing: other (persistent) Associated Symptoms: + abdominal pain, + diarrhea (some), No fevers, No vomiting, No melena Review of Systems See HPI for pertinent positives & negatives. A total of 10 systems reviewed and were otherwise negative. 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 (2) Aortic stenosis (3) Bicuspid aortic valve (4) Cervicalgia (5) Dilated aortic root (6) Dyslipidemia (7) History of adenomatous polyp of colon (8) History of supraventricular tachycardia (9) Hypertension (10) Hypothyroidism (11) Osteoarthros Nos-Pelvis Surgical Problems: (1) Status post cardiac catheterization (2) Status post cardiac surgery (3) Status post colonoscopy (4) Status post left hip replacement (5) Status post lumbar surgery Family History Coronary artery disease FATHER Diabetes mellitus MOTHER Heart disease MOTHER Social History Smoking Status: Current Some Day Smoker Alcohol Use: none Drug Use: none Marital Status: Housing Status: lives with significant other Current/Historical Medications Scheduled Amiodarone Hcl (Cordarone), 200 MG PO BID Aspirin (Aspirin Ec), 81 MG PO DAILY Cholecalciferol (Vitamin D3), 1 TAB PO DAILY Famotidine (Pepcid), 20 MG PO BID Levothyroxine Sodium (Synthroid), 75 MCG PO DAILY Metoprolol Tartrate (Lopressor) (Lopressor), 50 MG PO QAM Metoprolol Tartrate (Lopressor) (Lopressor), 25 MG PO HS Ondasetron Odt (Zofran Odt), 4 MG SL Q6H Simvastatin (Zocor), 20 MG PO QPM Miscellaneous Medications Furosemide (Furosemide), Unknown Dose Allergies Coded Allergies: Penicillins (Verified Allergy, Unknown, HIVES, SOB, G I UPSET, 09/03/17) Physical Exam Vital Signs Date Time Temp Pulse Resp B/P (MAP) Pulse Ox O2 Delivery O2 Flow Rate FiO2 09/03/17 21:14 67 16 109/59 97 Room Air 09/03/17 20:17 68 16 126/63 96 Room Air 09/03/17 19:43 64 16 102/64 Room Air 09/03/17 19:29 62 09/03/17 18:19 36.5 88 17 97/58 98 Room Air Physical Exam Vital signs reviewed. General: Well-appearing male, in no significant distress. HEENT: No scleral icterus, PERRLA, neck supple. Atraumatic. Cardiovascular: Well healing incision on chest. Regular rate and rhythm, no extra sounds. Pulmonary: Clear to auscultation bilaterally, normal work of breathing. Abdomen: Left lower quadrant tenderness. No tympany to percussion. Soft, nondistended, positive bowel sounds. Musculoskeletal: 2+ pedal edema to bilateral lower extremity. Atraumatic Neurologic: Patient awake alert and oriented x 3 Skin: Warm, dry, no rash Medical Decision & Procedures ER Provider Diagnostic Interpretation: Radiology results as stated below per my review and radiologist interpretation: CT OF THE ABDOMEN AND PELVIS WITH CONTRAST CLINICAL HISTORY: Left lower quadrant abdominal pain. Constipation. Recent cardiac valve. COMPARISON STUDY: CT of the abdomen and pelvis February 08, 2014. TECHNIQUE: Following IV administration of 118 mL of Optiray-320, axial images of the abdomen and pelvis were obtained from the lung bases to the proximal femurs. Images were reviewed in the axial, sagittal, and coronal planes. IV contrast was administered without complication. A dose lowering technique was utilized adhering to the principles of ALARA. CT DOSE: 999.94 mGy.cm FINDINGS: Visualized portions of the lower chest demonstrate small right and [id number] left pleural effusions. A small pericardial effusion is partially imaged with mild pericardial enhancement. A small amount of fluid within the right anterior epicardial fat is likely postprocedural. A subcentimeter left hepatic lobe cyst is noted. The spleen, right adrenal gland and pancreas are unremarkable. An 8 mm left adrenal nodule is unchanged and CT of February 08, 2014. This is benign given stability. Layering hyperdense material within gallbladder could reflect stones or sludge. There is mild gallbladder distention without pericholecystic infiltration. There is an indeterminate 2.3 cm lesion arising from the lower pole of the left kidney. This measures greater than water attenuation. There may be slight complexity of the posterior aspect of this lesion. A few additional left renal lesions likely reflect cysts. There is no hydronephrosis. There is colonic diverticulosis without evidence for acute diverticulitis. Prostate is mildly enlarged. Left hip arthroplasty is noted. There are no suspicious osseous lesions. There is no lymphadenopathy. IMPRESSION: 1. No acute process within the abdomen or pelvis. 2. No bowel obstruction. Unremarkable amount of stool within the colon and rectum. 3. Indeterminate 2.3 cm left renal lesion. This could reflect a hyperdense cyst or solid renal lesion. Nonemergent renal protocol MRI is recommended. 4. Small pericardial effusion. 5. Small to moderate left and small right pleural effusions with associated atelectasis. 6. Layering hyperdense material within the gallbladder which could reflect gallstones or sludge. No pericholecystic infiltration. Electronically signed by: Tye Arnold M.D. 09/03/2017 9:07 PM Laboratory Results 09/03/17 18:58 Red Blood Count 4.27, Mean Corpuscular Volume 91.1, Mean Corpuscular Hemoglobin 29.0, Mean Corpuscular Hemoglobin Concent 31.9, Mean Platelet Volume 11.4, Neutrophils (%) (Auto) 74.4, Lymphocytes (%) (Auto) 17.9, Monocytes (%) (Auto) 6.5, Eosinophils (%) (Auto) 0.7, Basophils (%) (Auto) 0.2, Neutrophils # (Auto) 7.69, Lymphocytes # (Auto) 1.85, Monocytes # (Auto) 0.67, Eosinophils # (Auto) 0.07, Basophils # (Auto) 0.02 09/03/17 18:58 Test 09/03/17 18:58 09/03/17 19:10 09/03/17 19:20 White Blood Count 10.33 K/uL (4.8-10.8) Red Blood Count 4.27 M/uL (4.7-6.1) Hemoglobin 12.4 g/dL (14.0-18.0) Hematocrit 38.9 % (42-52) Mean Corpuscular Volume 91.1 fL (80-100) Mean Corpuscular Hemoglobin 29.0 pg (25-34) Mean Corpuscular Hemoglobin Concent 31.9 g/dl (32-36) Platelet Count 319 K/uL (130-400) Mean Platelet Volume 11.4 fL (7.4-10.4) Neutrophils (%) (Auto) 74.4 % Lymphocytes (%) (Auto) 17.9 % Monocytes (%) (Auto) 6.5 % Eosinophils (%) (Auto) 0.7 % Basophils (%) (Auto) 0.2 % Neutrophils # (Auto) 7.69 K/uL (1.4-6.5) Lymphocytes # (Auto) 1.85 K/uL (1.2-3.4) Monocytes # (Auto) 0.67 K/uL (0.11-0.59) Eosinophils # (Auto) 0.07 K/uL (0-0.5) Basophils # (Auto) 0.02 K/uL (0-0.2) RDW Standard Deviation 48.6 fL (36.4-46.3) RDW Coefficient of Variation 14.7 % (11.5-14.5) Immature Granulocyte % (Auto) 0.3 % Immature Granulocyte # (Auto) 0.03 K/uL (0.00-0.02) Anion Gap 6.0 mmol/L (3-11) Est Creatinine Clear Calc Drug Dose 61.0 ml/min Estimated GFR () 57.9 Estimated GFR (Non- 49.9 BUN/Creatinine Ratio 7.8 (10-20) Calcium Level 9.1 mg/dl (8.5-10.1) Magnesium Level 2.2 mg/dl (1.8-2.4) Total Bilirubin 0.5 mg/dl (0.2-1) Direct Bilirubin 0.1 mg/dl (0-0.2) Aspartate Amino Transf (AST/SGOT) 16 U/L (15-37) Alanine Aminotransferase (ALT/SGPT) 35 U/L (12-78) Alkaline Phosphatase 108 U/L (45-117) Total Creatine Kinase 40 U/L (39-308) Creatine Kinase MB 0.6 ng/ml (0.5-3.6) Creatine Kinase MB Ratio 1.5 (0-3.0) Pro-B-Type Natriuretic Peptide 791 pg/ml (0-900) Total Protein 8.3 gm/dl (6.4-8.2) Albumin 3.2 gm/dl (3.4-5.0) Lipase 187 U/L (73-393) Bedside Troponin I < 0.030 ng/ml (0-0.045) Urine Color YELLOW Urine Appearance CLEAR (CLEAR) Urine pH 7.5 (4.5-7.5) Urine Specific [place] 1.017 (1.000-1.030) Urine Protein NEG (NEG) Urine Glucose (UA) NEG (NEG) Urine Ketones NEG (NEG) Urine Occult Blood TRACE (NEG) Urine Nitrite NEG (NEG) Urine Bilirubin NEG (NEG) Urine Urobilinogen POS (NEG) Urine Leukocyte Esterase NEG (NEG) Urine WBC (Auto) 1-5 /hpf (0-5) Urine RBC (Auto) 0-4 /hpf (0-4) Urine Hyaline Casts (Auto) 1-5 /lpf (0-5) Urine Epithelial Cells (Auto) 5-10 /lpf (0-5) Urine Bacteria (Auto) NEG (NEG) Laboratory results per my review Medications Administered Medications (Trade) Dose Ordered Sig/Deepak Route Start Time Stop Time Status Last Admin Dose Admin Sodium Chloride 250 ml @ 999 mls/hr Q16M STAT IV 09/03/17 18:30 09/03/17 18:45 DC 09/03/17 19:42 999 MLS/HR Sodium Chloride 1,000 ml @ 125 mls/hr Q8H STAT IV 09/03/17 18:30 18 21:54 DC 09/03/17 19:43 125 MLS/HR Ondansetron HCl (Zofran Inj) 4 mg NOW STAT IV 09/03/17 18:30 17 18:36 DC 09/03/17 19:03 4 MG Furosemide (Lasix Inj) 40 mg NOW STAT IV 09/03/17 21:18 09/03/17 21:20 DC 09/03/17 21:18 40 MG Ondansetron HCl (ZOFRAN ODT 4MG Home Pack) 1 homepack UD ONCE PO 09/03/17 21:45 09/03/17 21:46 DC 09/03/17 21:45 1 HOMEPACK ECG Indication: nausea Rate (beats per minute): 63 Rhythm: normal sinus Findings: 1st degree AV block, LBBB, no acute ischemic change, no ectopy ED Course 1825: Past medical records reviewed. The patient was evaluated in room B11. A complete history and physical examination was performed. 1829:Ordered Sodium Chloride 250ml @999mls/hr IV, Sodium Chloride 1000ml@ 125mls /hr IV, and Zofran Inj 4mg IV. 1844: Ordered Optiray 320 100ml IV. 2111: Ordered Lasix Inj 20mg IV. 2117: Ordered Lasix Inj 40mg IV. 2119: Upon reevaluation, the patient appeared to have improvement of his symptoms. I discussed findings with him. He verbalized agreement of the treatment plan. The patient requested a prescription for Zofran, noting it helped relieve his symptoms. The patient was discharged home. Medical Decision Differential diagnosis: Etiologies such as appendicitis, diverticulitis, PUD, biliary pathology, UTI, pancreatitis, obstruction, mesenteric ischemia, aortic pathology, infections, inflammatory bowel disease, renal colic, as well as others were entertained. This patient was evaluated and appeared to be in no significant distress. IV access was obtained and laboratory work was drawn. The patient was placed on the cosmetic sales advisor and found to be in sinus rhythm with first-degree AV block. Patient's lung sounds are clear. He seems to be tender to palpation of the left lower quadrant. Patient states he has been having bowel movements and he does continue to use stool softeners. CT scan was ordered, IV normal saline solution 250 mL bolus was given. CT scan abdomen and pelvis was performed and is largely negative for acute pathology. There is a renal cyst identified as well as gallbladder sludge. There is no evidence of acute cholecystitis and no obstructive biliary pathology. The patient does have pleural effusions and lower extremity edema. He was given 40 mg of IV Lasix. The patient was advised of the findings. He will follow-up with his [employer] in 4 days as scheduled. Patient was given compression stockings to help minimize lower extremity edema. He will return to the emergency department for worsening of symptoms or any medical concerns. Medication Reconcilliation Current Medication List: was personally reviewed by me Blood Pressure Screening Blood pressure disposition: Did not require urgent referral Impression Primary Impression: Pleural effusion, bilateral Additional Impressions: Renal cyst Gallbladder sludge Peripheral edema Scribe Attestation The scribe's documentation has been prepared under my direction and personally reviewed by me in its entirety. I confirm that the note above accurately reflects all work, treatment, procedures, and medical decision making performed by me. Departure Information Dispostion Home / Self-Care Prescriptions Famotidine (Pepcid) 20 Mg Tab 20 MG PO BID, #30 TAB Prov: Stacia Donald M.D. 09/03/17 Ondasetron Odt (ZOFRAN ODT) 4 Mg Tab 4 MG SL Q6H for Nausea, #15 TAB Prov: Stacia Donald M.D. 09/03/17 Referrals Hudson Myers M.D. (PCP) Forms HOME CARE DOCUMENTATION FORM, IMPORTANT VISIT INFORMATION Patient Instructions My [facility] Additional Instructions Diagnosis: Bilateral pleural effusions, renal cyst, gallbladder sludge, peripheral edema Please were your compression stockings when you are on your feet. Continue medications as prescribed. Follow-up with cardiology on Sunday as scheduled. Follow-up with your PCP regarding the renal cyst and gallbladder sludge. Return to the emergency department for worsening of symptoms or any medical concerns. Problem Qualifiers
== END 2017-09-03 21:48 | disposition home or self-care (01) ==
LOC: C.EDB 18:19
DX: J90 Pleural effusion, not elsewhere classified (principal); N28.1 Cyst of kidney, acquired; K82.9 Disease of gallbladder, unspecified; R60.9 Edema, unspecified; I44.0 Atrioventricular block, first degree; I44.7 Left bundle-branch block, unspecified; I35.0 Nonrheumatic aortic (valve) stenosis; E78.5 Hyperlipidemia, unspecified; I10 Essential (primary) hypertension; E03.9 Hypothyroidism, unspecified; M19.90 Unspecified osteoarthritis, unspecified site; F17.200 Nicotine dependence, unspecified, uncomplicated; Z98.890 Other specified postprocedural states; Z79.82 Long term (current) use of aspirin; Z79.899 Other long term (current) drug therapy; Z88.0 Allergy status to penicillin; Z82.49 Family history of ischemic heart disease and other diseases of the circulatory system; Z83.3 Family history of diabetes mellitus

== ENCOUNTER 2018-01-28 07:14 | Emergency (ER) | payer OTHER ==
[~2018-01-28 07:14] MED LIST changes: -BRIM1GEL; +FAMO20TA11 PO; +LSX20; +METO25TA56 PO; +ONDA4TAB10 SL; -TRIATAB3 PO
[2018-01-28 07:16] VITALS: TEMP 36.7
--- NOTE | 2018-01-28 08:00 | DIAGNOSTIC IMAGING REPORT ---
R KNEE 3 VIEWS HISTORY: 62 years-old Male R knee pain/injury acute right knee pain COMPARISON: None available TECHNIQUE: 3 views of the right knee FINDINGS: 1.4 cm corticated bone fragment is noted within the region of the tibial tuberosity suggesting remote trauma. Mild medial soft tissue swelling. Minimal tricompartmental marginal spurring thousand joint space narrowing. There is no acute fracture or dislocation. No large joint effusion or opaque foreign body. Trace joint effusion. IMPRESSION: Mild medial soft tissue swelling and trace joint effusion without acute fracture or dislocation. The above report was generated using voice recognition software. It may contain grammatical, syntax or spelling errors. Electronically signed by: Devan Rosen M.D. 01/28/2018 7:59 AM Dictated Date/Time: 01/28/2018 7:49 AM
[2018-01-28] MEDS ORDERED: LOSA1TAB PO (08:06)
[2018-01-28] MEDS ORDERED: POTA10CA28 PO (08:06)
[2018-01-28] MEDS ORDERED: FRS/40 PO (08:06)
[2018-01-28 08:30] VITALS: BP 144/76; PULSE 79; O2SAT 98
--- NOTE | 2018-01-28 15:38 | EMERGENCY ROOM VISIT NOTE ---
History First contact with patient: 07:24 Chief Complaint: KNEEPAIN Stated Complaint: RIGHT KNEE PAIN History of Present Illness The patient is a 62 year old male who presents to the Emergency Room with complaints of right knee swelling and pain. The patient reports that he initially injured his right foot 6 days ago. He is now starting to develop knee pain and swelling. He denies any pain extending into the hip or back. He denies any paresthesias or numbness of the right lower extremity. The patient denies any prior history of right knee injuries or surgery. He denies prior history of gout or joint infection. Weightbearing worsens his discomfort to a 4 out of 10. Patient has not contacted his family doctor or orthopedics regarding his recent injuries. 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 (2) Aortic stenosis (3) Bicuspid aortic valve (4) Cervicalgia (5) Dilated aortic root (6) Dyslipidemia (7) History of adenomatous polyp of colon (8) History of supraventricular tachycardia (9) Hypertension (10) Hypothyroidism (11) Osteoarthros Nos-Pelvis Surgical Problems: (1) Status post cardiac catheterization (2) Status post cardiac surgery (3) Status post colonoscopy (4) Status post left hip replacement (5) Status post lumbar surgery Family History Coronary artery disease FATHER Diabetes mellitus MOTHER Heart disease MOTHER Social History Smoking Status: Never Smoker Alcohol Use: none Drug Use: none Marital Status: Housing Status: lives with significant other Current/Historical Medications Scheduled Aspirin (Aspirin Ec), 81 MG PO DAILY Cholecalciferol (Vitamin D3), 1 TAB PO DAILY Furosemide (Lasix), 40 MG PO DAILY Levothyroxine Sodium (Synthroid), 75 MCG PO DAILY Losartan Potassium (Cozaar), 25 MG PO DAILY Metoprolol Tartrate (Lopressor) (Lopressor), 25 MG PO BID Potassium Chloride (Micro-K Ext Rel), 20 MEQ PO DAILY Simvastatin (Zocor), 20 MG PO QPM Physical Exam Vital Signs Date Time Temp Pulse Resp B/P (MAP) Pulse Ox O2 Delivery O2 Flow Rate FiO2 01/28/18 08:30 79 20 144/76 98 01/28/18 07:16 36.7 84 20 153/71 96 Room Air Physical Exam CONSTITUTIONAL: Healthy and well nourished. Alert and oriented X 3 with positive affect. Patient does not appear in any acute distress. HEENT: Normocephalic, atraumatic. Pupils equal, round and reactive. NECK: Full active range of motion without discomfort. MUSCULOSKELETAL: Examination of the right knee region does not show any ecchymosis, erythema, increased warmth to palpation, joint effusion or significant tenderness to palpation over the joint lines. Patient has mild discomfort with flexion and extension. No popliteal masses. Pedal pulses are intact. The patient has no obvious edema or ecchymosis about the ankle or foot region. INTEGUMENTARY: No rash or other significant dermatologic conditions noted. NEUROLOGIC: No focal neurologic deficits noted. Right foot and toes are sensory intact. Medical Decision & Procedures ER Provider Diagnostic Interpretation: My interpretation of right knee x-rays shows a trace joint effusion without evidence for acute fracture or dislocation. The patient does have evidence for a well-corticated bony fragment just superior to the tibial tubercle. Radiologist report is as follows: R KNEE 3 VIEWS HISTORY: 62 years-old Male R knee pain/injury acute right knee pain COMPARISON: None available TECHNIQUE: 3 views of the right knee FINDINGS: 1.4 cm corticated bone fragment is noted within the region of the tibial tuberosity suggesting remote trauma. Mild medial soft tissue swelling. Minimal tricompartmental marginal spurring thousand joint space narrowing. There is no acute fracture or dislocation. No large joint effusion or opaque foreign body. Trace joint effusion. IMPRESSION: Mild medial soft tissue swelling and trace joint effusion without acute fracture or dislocation. ED Course Patient history and physical exam were performed. Nurse's notes were reviewed. Vital signs were reviewed and grossly normal. The patient refused any analgesics while in the emergency department. X-rays of the right knee shows a mild joint effusion, otherwise no other acute findings. A knee immobilizer was applied. The patient reports that he has a walker at home, and he was encouraged to use it. The patient was instructed to follow-up with [facility] for further evaluation and management. Ibuprofen or Tylenol as needed for pain. The patient was happy with plan of care, voiced understanding of all discharge instructions, and rated his discomfort a 3 out of 10 at the conclusion of my exam. Medical Decision [place] Drug Monitoring Program Search Results: patient reviewed within database Medication Reconcilliation Current Medication List: was personally reviewed by me Blood Pressure Screening Patient's blood pressure: Normal blood pressure Impression Primary Impression: Right knee pain Additional Impression: Right foot pain Departure Information Referrals Jose M Esposito D.OCoreen (PCP) Patient Instructions My [facility] Problem Qualifiers Primary Impression: Right knee pain Chronicity: acute Qualified Codes: M25.561 - Pain in right knee
== END 2018-01-28 08:29 | disposition home or self-care (01) ==
LOC: C.EDB 07:15
DX: M25.561 Pain in right knee (principal); M79.671 Pain in right foot; R60.0 Localized edema; E78.5 Hyperlipidemia, unspecified; I10 Essential (primary) hypertension; E03.9 Hypothyroidism, unspecified; Z79.82 Long term (current) use of aspirin; Z79.899 Other long term (current) drug therapy